=== PATIENT | male | born 1975 | race Caucasian/White ===

== ENCOUNTER 2024-06-22 21:02 | Emergency (ER) | payer SELFPAY ==
[2024-06-22 21:08] VITALS: BP 158/78; PULSE 96; TEMP 97.9
--- NOTE | 2024-06-22 21:43 | ED ---
General Adult HPI - General Chief complaint: Dental/Oral Stated complaint: Dental Pain Time Seen by Provider: 06/22/24 21:15 Source: patient, RN notes reviewed, old records reviewed Mode of arrival: ambulatory Limitations: no limitations - History of Present Illness Initial comments: Patient is a 49-year-old male with no significant past medical history presents emergency department over concern for dental infection. Had tooth extraction approximately 7 days ago. Just finished his Augmentin antibiotic yesterday. Since yesterday has been having some right upper jawline swelling into the right cheek. Is concerned that he needs more antibiotics. Denies any difficulty swallowing. Denies any difficulty breathing. Denies any tongue swelling or posterior throat swelling. Denies any neck swelling. Has no other acute complaints at this time. Is tolerating oral secretions. Presents for evaluation. - Related Data Previous Rx's Medication Instructions Recorded Clindamycin [Cleocin] 450 mg PO TID 7 Days #63 cap 06/22/24 predniSONE [Deltasone] 20 mg PO DAILY 5 Days #5 tab 06/22/24 Allergies Allergy/AdvReac Type Severity Reaction Status Date / Time vancomycin AdvReac Rash/Hives Verified 06/22/24 21:08 Review of Systems ROS Statement: Those systems with pertinent positive or pertinent negative responses have been documented in the HPI. Review of Systems: CONST: Denies fever EYES: Denies blurry vision ENT: Endorses tooth pain, cheek swelling C/V: Denies Chest pain RESP: Denies shortness of breath GI: Denies abdominal pain : Denies dysuria SKIN: Denies rash. MSK: Denies joint pain. NEURO: Denies headache ROS Other: All systems not noted in ROS Statement are negative. Past Medical History Past Medical History: No Reported History History of Any Multi-Drug Resistant Organisms: None Reported Past Surgical History: Orthopedic Surgery Past Psychological History: No Psychological Hx Reported Smoking Status: Current every day smoker Past Alcohol Use History: None Reported Past Drug Use History: None Reported General Exam - General Exam Comments Initial Comments: General: Appears in no acute distress. HEAD: Normal with no signs of head trauma. EYES: EOMI. PERRLA. Pupils are 2 mm and equal bilaterally. ENT: Hearing grossly intact. Mild edema over the right cheek. No significant tenderness to palpation over the maxillary sinus bilaterally. No obvious abscess appreciated intraorally. Surgical site where the tooth was extracted appears within acceptable limits. Some edema in the gumline. Uvula is midline. No posterior oropharyngeal swelling. No tongue edema. No floor the mouth swelling. No stridor auscultated. Tolerating oral secretions. No evidence of Brandon's angina. RESPIRATORY: No respiratory distress. C/V: Regular rate and rhythm. ABD: Abdomen is nondistended. EXT: No obvious deformity. SKIN: No rashes or lesions observed on exposed skin. NEURO: Alert and oriented. Limitations: no limitations Course Vital Signs 06/22/24 21:04 Temperature 97.9 F Pulse Rate 96 Respiratory 18 Rate Blood Pressure 158/78 O2 Sat by Pulse 98 Oximetry Medical Decision Making - Medical Decision Making Was pt. sent in by a medical professional or institution (, PA, CONSTRUCTION EQUIPMENT OPERATOR, urgent care, hospital, or senior living...) When possible be specific @ -No Did you speak to anyone other than the patient for history (EMS, parent, family, police, friend...)? What history was obtained from this source @ -No Did you review nursing and triage notes (agree or disagree)? Why? @ -I reviewed and agree with nursing and triage notes Were old charts reviewed (outside hosp., previous admission, EMS record, old EKG, old radiological studies, urgent care reports/EKG's, senior living records)? Report findings @ -No old charts were reviewed Differential Diagnosis (chest pain, altered mental status, abdominal pain women, abdominal pain men, vaginal bleeding, weakness, fever, dyspnea, syncope, headache, dizziness, GI bleed, back pain, seizure, CVA, palpatations, mental health, musculoskeletal)? @ -Brandon's angina, dental pain, tooth infection. This list is not all inclusive. EKG interpreted by me (3pts min.). @ -None done X-rays interpreted by me (1pt min.). @ -None done CT interpreted by me (1pt min.). @ -None done U/S interpreted by me (1pt. min.). @ -None done What testing was considered but not performed or refused? (CT, X-rays, U/S, labs)? Why? @ -Discussed the option of imaging of the face however patient and I both agree this is not necessary at this time and we will defer. Patient can return if symptoms worsen. What meds were considered but not given or refused? Why? @ -None Did you discuss the management of the patient with other professionals (rossi vivas i.e. , PA, CONSTRUCTION EQUIPMENT OPERATOR, lab, RT, psych nurse, social services specialist, truck driver rubbish collector, teacher, environmental conservation officer, case fitter)? Give summary @ -No Was smoking cessation discussed for >3mins.? @ -No Was critical care preformed (if so, how long)? @ -No Were there social determinants of health that impacted care today? How? (Homelessness, low income, unemployed, alcoholism, drug addiction, transportation, low edu. Level, literacy, decrease access to med. care, fpc, rehab)? @ -No Was there de-escalation of care discussed even if they declined (Discuss DNR or withdrawal of care, Hospice)? DNR status @ -No What co-morbidities impacted this encounter? (DM, HTN, Smoking, COPD, CAD, Cancer, CVA, ARF, Chemo, Hep., AIDS, mental health diagnosis, sleep apnea, morbid obesity)? @ -None Was patient admitted / discharged? Hospital course, mention meds given and route, prescriptions, significant lab abnormalities, going to OR and other pertinent info. @ -Patient presents with what appears to be tooth infection. Some swelling over the right cheek as well. We discussed the option of obtaining CT imaging however he has swelling to started today, is not severe, is tolerating oral secretions, has no difficulty breathing, minimal tenderness, and vitals are within acceptable limits. Patient has no evidence of Brandon's angina on exam. We both agreed to defer at this time. Patient can always return if symptoms worsen. Patient was in agreement this plan. Patient will be given a dose of IM steroids as well as a prescription for steroids as well as antibiotics. He will be restarted on antibiotics today, clindamycin. Instructions to follow-up with his oral surgeon. He was in agreement this plan. Vital signs are within acceptable limits. I will provide the patient with a prescription for prednisone, clindamycin. I instructed the patient to follow up with their PCP in the next 1-3 days. I explained that the patient should return to the emergency department if they experience any worsening symptoms. Strict return precautions were discussed with the patient. The patient expressed understanding of these instructions. I answered all questions that the patient had. The patient was discharged home in good condition with their prescriptions and follow up information. Undiagnosed new problem with uncertain prognosis? @ -No Drug Therapy requiring intensive monitoring for toxicity (Heparin, Nitro, Insulin, Cardizem)? @ -No Were any procedures done? @ -No Diagnosis/symptom? @ -Dental infection, toothache Acute, or Chronic, or Acute on Chronic? @ -Acute Uncomplicated (without systemic symptoms) or Complicated (systemic symptoms)? @ -Uncomplicated Side effects of treatment? @ -No Exacerbation, Progression, or Severe Exacerbation? @ -No Poses a threat to life or bodily function? How? (Chest pain, USA, [place], pneumonia, PE, COPD, DKA, ARF, appy, cholecystitis, CVA, Diverticulitis, Homicidal, Suicidal, threat to staff... and all critical care pts) @ -Unlikely at this time Disposition Clinical Impression: Dental infection, Toothache Disposition: HOME SELF-CARE Condition: Good Instructions (If sedation given, give patient instructions): Toothache (ED) Prescriptions: Clindamycin [Cleocin] 450 mg PO TID 7 Days #63 cap predniSONE [Deltasone] 20 mg PO DAILY 5 Days #5 tab Is patient prescribed a controlled substance at d/c from ED?: No Referrals: None,Stated [Primary Care Provider] - 1-2 days Time of Disposition: 21:43
[2024-06-22] MEDS: DEXAMETHASONE SOD PHOSPHATE 4 MG/ML 1 ML VIAL IM STA (22:08)
[2024-06-22] MEDS: CLINDAMYCIN 150 MG CAP PO STA (22:08)
[2024-06-22 22:11] VITALS: RESP 16
== END 2024-06-22 22:12 | disposition home or self-care (01) ==
LOC: EC 21:02
CPT/HCPCS: 96372; 99283

== ENCOUNTER 2024-06-26 13:37 | Inpatient (IN) | payer BC ==
[2024-06-26 15:34] LABS: Basophils # (A) 0.1 k/uL (0-0.2); Basophils % (A) 0 %; Eosinophils # (A) 0.1 k/uL (0-0.7); Eosinophils % (A) 1 %; HCT 46.6 % (39.0-53.0); HGB 15.8 gm/dL (13.0-17.5); Lymphocytes # (A) 1.8 k/uL (1.0-4.8); Lymphocytes % (A) 14 %; MCH 30.3 pg (25.0-35.0); MCHC 33.9 g/dL (31.0-37.0); MCV 89.4 fL (80.0-100.0); Mean Platelet Volume 6.6; Monocytes # (A) 0.7 k/uL (0-1.0); Monocytes % (A) 5 %; Neutrophils # (A) 10.4 k/uL (1.3-7.7); Neutrophils % (A) 79 %; Platelet Count 391 k/uL (150-450); RBC 5.21 m/uL (4.30-5.90); RDW 12.5 % (11.5-15.5); WBC 13.2 k/uL (3.8-10.6)
[2024-06-26 15:41] LABS: ALT 40 U/L (4-49); AST 21 U/L (17-59); African American GFR (CKD) >90 (>60 ml/min/1.73 sqM); Albumin 4.4 g/dL (3.5-5.0); Alkaline Phosphatase 85 U/L (38-126); Anion Gap 4 mmol/L; Blood Urea Nitrogen 14 mg/dL (9-20); Calcium 10.9 mg/dL (8.4-10.2); Carbon Dioxide 32 mmol/L (22-30); Chloride 101 mmol/L (98-107); Glucose 99 mg/dL (74-99); Non-African American GFR(CKD) >90 (>60 ml/min/1.73 sqM); Potassium 4.3 mmol/L (3.5-5.1); Sodium 137 mmol/L (137-145); Total Bilirubin 0.8 mg/dL (0.2-1.3); Total Protein 7.9 g/dL (6.3-8.2)
--- NOTE | 2024-06-26 16:09 | CT ---
EXAMINATION TYPE: CT facial bones w con DATE OF EXAM: 06/26/2024 3:41 PM COMPARISON: None. CLINICAL INDICATION: Male, 49 years old with history of dental abscess, worsening; PHH, worsening den linda abscess TECHNIQUE: Multiple unenhanced axial CT images were obtained of the facial bones soft tissue and bone windows. Coronal, axial and sagittal reformatted images were also provided in soft tissue and bone windows and submitted for interpretation. Contrast used:100 ml mL of Isovue 370 with IV Contrast, (none if empty) Oral contrast used: (none if empty) CT DLP: 401.4 mGycm, Automated exposure control for dose reduction was used. FINDINGS: Fat stranding inflammation changes around the right mandible with near complete opacification of the right maxillary sinus. There is severe edema in around the right maxilla and mandible. Early abscess formation suggested series 202 image 33 measuring 11 x 6 mm. Prominent right level 2 lymph node likely reactive measuring 10 mm in short axis. There is osseous er osion near the right superior alveolar ridge of the maxilla near the first molar IMPRESSION: 1. Osseous erosion near the expected location of the right upper first molar with moderate right max illary sinus paranasal sinus disease. Severe edema and subcutaneous fat stranding changes with small organizing fluid collection/abscess measuring 11 x 6 mm. [facility], , 06/26/2024 4:07 PM
[2024-06-26] MEDS: HYDROmorphone 1 MG/ML 1 ML SYRINGE IVP STA (16:48)
[2024-06-26] MEDS: AMPICILLIN-SULBACTAM 3 GM in SODIUM CHLORIDE 0.9% 100 ML IVPB STA (16:54)
[2024-06-26] MEDS: DEXAMETHASONE SOD PHOSPHATE 10 MG/ML 1 ML VIAL IVP STA (19:01)
[2024-06-26] MEDS: .ACETAMINOPHEN IV (PEDS) 1,000 MG in EMPTY BAG 1 BAG IVPB STA (19:06)
--- NOTE | 2024-06-26 19:52 | ED ---
General Adult HPI - General Chief complaint: Dental/Oral Stated complaint: Oral Pain Source: patient Mode of arrival: ambulatory Limitations: no limitations - History of Present Illness Initial comments: Stefano gentleman, everyday cigarette smoker presents ER today for worsening facial pain and swelling. Patient had a right upper tooth removed 13 days ago, he was prescribed antibiotics at the time of the extraction. Despite being compliant with his antibiotics he had worsening pain and some mild swelling, he was reevaluated here at the hospital and had a new prescription for myosin. Patient has been taking the clindamycin since Thursday but has persistently worsening pain and swelling. Today the swelling in his face is so profound that his eye is swollen and he is having trouble opening his eye this prompted him to come to the ER for evaluation. - Related Data Previous Rx's Medication Instructions Recorded Clindamycin [Cleocin] 450 mg PO TID 7 Days #63 cap 06/22/24 predniSONE [Deltasone] 20 mg PO DAILY 5 Days #5 tab 06/22/24 Allergies Allergy/AdvReac Type Severity Reaction Status Date / Time vancomycin Allergy Rash/Hives Verified 06/26/24 18:46 Review of Systems ROS Statement: Those systems with pertinent positive or pertinent negative responses have been documented in the HPI. ROS Other: All systems not noted in ROS Statement are negative. Past Medical History Past Medical History: No Reported History History of Any Multi-Drug Resistant Organisms: None Reported Past Surgical History: Orthopedic Surgery Past Psychological History: No Psychological Hx Reported Smoking Status: Current every day smoker Past Alcohol Use History: None Reported Past Drug Use History: None Reported General Exam - General Exam Comments Initial Comments: Physical Exam GENERAL: Is in distress due to pain, he has significant edema of the right side of his face with angioedema around the eye HENT: Swelling of the cheek and right side of the face noted Dentition recent extractions no palpable areas of fluctuance or areas that can be drained EYES: PERRL, EOMI PULMONARY: Unlabored respirations. CARDIOVASCULAR: RRR Warm and well perfused extremities ABDOMEN: Non-distended SKIN: No rashes or bruising : Deferred NEUROLOGIC: Alert and oriented Normal speech Normal gait MUSCULOSKELETAL: Moving all extremities with no apparent injury PSYCHIATRIC: No SI/HI Limitations: no limitations Course Vital Signs 06/26/24 06/26/24 06/26/24 14:16 15:52 16:47 Temperature 99.0 F 99.4 F Pulse Rate 94 82 82 Respiratory 18 16 18 Rate Blood Pressure 134/85 143/94 137/82 O2 Sat by Pulse 100 98 98 Oximetry 06/26/24 18:17 Temperature 100.0 F H Pulse Rate 76 Respiratory 18 Rate Blood Pressure 127/84 O2 Sat by Pulse 97 Oximetry Medical Decision Making - Medical Decision Making Was pt. sent in by a medical professional or institution (, SATISH, TUNA PURSE SEINER, urgent care, hospital, or longterm...) When possible be specific @ -No Did you speak to anyone other than the patient for history (EMS, parent, family, police, friend...)? What history was obtained from this source @ -No Did you review nursing and triage notes (agree or disagree)? Why? @ -I reviewed and agree with nursing and triage notes Were old charts reviewed (outside hosp., previous admission, EMS record, old EKG, old radiological studies, urgent care reports/EKG's, longterm records)? Report findings @ -Visits were reviewed Differential Diagnosis (chest pain, altered mental status, abdominal pain women, abdominal pain men, vaginal bleeding, weakness, fever, dyspnea, syncope, headache, dizziness, GI bleed, back pain, seizure, CVA, palpatations, mental health)? @ -Includes cellulitis, abscess EKG interpreted by me (3pts min.). @ -As above X-rays interpreted by me (1pt min.). @ -None done CT interpreted by me (1pt min.). @ -CT with no free air in the tissue, significant edema noted U/S interpreted by me (1pt. min.). @ -None done What testing was considered but not performed or refused? (CT, X-rays, U/S, labs)? Why? @ -None What meds were considered but not given or refused? Why? @ -None Did you discuss the management of the patient with other professionals (professionals i.e. , SATISH, TUNA PURSE SEINER, lab, RT, psych nurse, social work lecturer, serology technician, teacher, correctional security officer, renal case manager)? Give summary @ -No Was smoking cessation discussed for >3mins.? @ -Yes Was critical care preformed (if so, how long)? @ -No Were there social determinants of health that impacted care today? How? (Home lessness, low income, unemployed, alcoholism, drug addiction, transportation, low edu. Level, literacy, decrease access to med. care, snf, rehab)? @ -No Was there de-escalation of care discussed even if they declined (Discuss DNR or withdrawal of care, Hospice)? DNR status @ -No What co-morbidities impacted this encounter? (DM, HTN, Smoking, COPD, CAD, Cancer, CVA, ARF, Chemo, Hep., AIDS, mental health diagnosis, sleep apnea, morbid obesity)? @ -Smoking Was patient admitted / discharged? Hospital course, mention meds given and route, prescriptions, significant lab abnormalities, going to OR and other pertinent info. @ -Patient was seen and evaluated labs and CT of the face were obtained CT suggestive of a very small abscess however nothing that I can drain. Patient was treated with Unasyn. Given the degree of the patient's swelling and his failure of outpatient therapy with 2 courses of oral antibiotics we will plan to admit him for IV antibiotics. Dr. Dacosta accepts the admission Undiagnosed new problem with uncertain prognosis? @ -No Drug Therapy requiring intensive monitoring for toxicity (Heparin, Nitro, Insulin, Cardizem)? @ -No Were any procedures done? @ -No Diagnosis/symptom? @ -Dental abscess Acute, or Chronic, or Acute on Chronic? @ -Acute Uncomplicated (without systemic symptoms) or Complicated (systemic symptoms)? @ -Default Side effects of treatment? @ -No Exacerbation, Progression, or Severe Exacerbation? @ -No Poses a threat to life or bodily function? How? (Chest pain, USA, [place], pneumonia, PE, COPD, DKA, ARF, appy, cholecystitis, CVA, Diverticulitis, Homicidal, Suicidal, threat to staff... and all critical care pts) @ -Unlikely however can advance to Brandon's angina which can be life- threatening - Lab Data Result diagrams: 06/26/24 15:21 06/26/24 15:21 Lab Results 06/26/24 06/26/24 Range/Units 15:21 15:21 WBC 13.2 H (3.8-10.6) k/uL RBC 5.21 (4.30-5.90) m/uL Hgb 15.8 (13.0-17.5) gm/dL Hct 46.6 (39.0-53.0) % MCV 89.4 (80.0-100.0) fL MCH 30.3 (25.0-35.0) pg MCHC 33.9 (31.0-37.0) g/dL RDW 12.5 (11.5-15.5) % Plt Count 391 (150-450) k/uL MPV 6.6 Neutrophils % 79 % Lymphocytes % 14 % Monocytes % 5 % Eosinophils % 1 % Basophils % 0 % Neutrophils # 10.4 H (1.3-7.7) k/uL Lymphocytes # 1.8 (1.0-4.8) k/uL Monocytes # 0.7 (0-1.0) k/uL Eosinophils # 0.1 (0-0.7) k/uL Basophils # 0.1 (0-0.2) k/uL Sodium 137 (137-145) mmol/L Potassium 4.3 (3.5-5.1) mmol/L Chloride 101 (98-107) mmol/L Carbon Dioxide 32 H (22-30) mmol/L Anion Gap 4 mmol/L BUN 14 (9-20) mg/dL Creatinine 0.90 (0.66-1.25) mg/dL Est GFR (CKD-EPI)AfAm >90 (>60 ml/min/1.73 sqM) Est GFR (CKD-EPI)NonAf >90 (>60 ml/min/1.73 sqM) Glucose 99 (74-99) mg/dL Calcium 10.9 H (8.4-10.2) mg/dL Total Bilirubin 0.8 (0.2-1.3) mg/dL AST 21 (17-59) U/L ALT 40 (4-49) U/L Alkaline Phosphatase 85 (38-126) U/L Total Protein 7.9 (6.3-8.2) g/dL Albumin 4.4 (3.5-5.0) g/dL Disposition Clinical Impression: Dental infection Disposition: ADMITTED IP TO THIS [facility] Referrals: None,Stated [Primary Care Provider] - 1-2 days
[2024-06-26] MEDS ORDERED: NALOXONE 0.4 MG/ML 1 ML VIAL IV PRN (21:15)
--- NOTE | 2024-06-26 23:15 | P.HPIM ---
History of Present Illness H&P Date: 06/26/24 Chief Complaint: "The swelling over right face." Stefano is a 49 y o male patient no chronic medical problems who presented with swelling and pressure on the right side of his face. He was seen in the ER on Thursday due to this issue, which started swelling up after the extraction of a right upper first molar due to an abscess approximately 2 weeks ago. After the initial swelling, it improved on but started worsening again on Thursday evening, prompting him to cut a trip short to return for care. Stefano reports associated pain, chills, and a fever noted during his visit. He also indicates slight difficulty swallowing in the right submandibular region. He denies shortness of breath, chest pain, and gastrointestinal issues, denies drooling. His pain seems to increase during swallowing. He received a course of antibiotics following his tooth extraction, finishing a ten-day regimen and stating that while he initially improved, the symptoms have returned. He has a history of dental issues but reports no acute dental pain currently. Stefano is currently living independently and smokes cigarettes. He denies alcohol and illicit drug use. Status post extraction of right upper first molar due to abscess 2 weeks ago. History of MRSA, knee surgery, and rotator cuff surgery, dates not specified. Vancomycin - allergic reaction, described as red man syndrome, with skin peeling and renal issues reported. Review of systems HEENT - swelling on the right side of the face, tenderness in the parotid region, slight discomfort while swallowing. Denies nasal congestion or sore throat. Respiratory - denies shortness of breath or cough. Gastrointestinal - denies nausea, vomiting, or diarrhea. Genitourinary - denies any urinary issues. Musculoskeletal - some pain reported in neck and location of surgical site but no severe limitations; no history of major pain in lower limbs. Neurological - denies dizziness or headaches. on exam Constitutional: No acute distress, conversant, pleasant Eyes: Anicteric sclerae, moist conjunctiva, Pupils equal round reactive to light ENMT: NC/AT Significant soft tissue swelling over the right side of the face with tenderness palpation of the right frontal and even worse over the right maxillary sinus, l oral movements restricted due to pain Neck: Supple, no masses, or JVD No carotid bruits No thyromegaly Lungs: Clear to auscultation Clear to percussion Normal respiratory effort, no accessory muscle use Cardiovascular: Heart regular in rate and rhythm, No murmurs, gallops, or rubs No peripheral edema Abdominal: Soft Nontender, no guarding, rebound or rigidity Abdomen moving with respiration Normoactive bowel sounds Extremities: No digital cyanosis No clubbing Pedal pulses intact and symmetrical Radial pulses intact and symmetrical No calf tenderness Psychiatric: Alert and oriented to person, place and time Appropriate affect fair judgement Neuro Muscles Strength 5/5 in all 4 extremities Sensation to light touch grossly present throughout Cranial nerves II-XII grossly intact Lymphatics: no palpable cervical or supraclavicular lymph nodes Assessment and plan 49-year-old male with no chronic problems presented with worsening right facial swelling status post dental extraction due to an abscess 2 weeks ago for which she finished a course of antibiotics as an outpatient I discussed case with ED doctor and accepted the admission for significant facial swelling and recurrent right dental abscess with anticipated length of stay more than 2 midnights Sepsis secondary to right dental abscess Subclinical fever temperature 100 overall Leukocytosis white count 13.2 tachycardia heart rate 94 Follow-up cultures Unasyn 3 g IV piggyback every 6 hours Tylenol 650 mg p.o. as needed for fever every 6 hours Pain control with Toradol 50 mg IV push every 6 hours as needed Pain control with Dilaudid 0.5 mg IV push every 6 hours as needed Monitor for any worsening of swelling leading to difficulty swallowing or breathing Monitor vital signs CT of the face showed right upper first molarerosion with right maxillary sinus disease along with severe edema and subcutaneous fat stranding possible abscess 11 x 6 mm IV fluid hydration with normal saline 130 cc/h Rest of blood work unremarkable hemoglobin 15.8 unremarkable Renal function unremarkable sodium 137 potassium 4.3 BUN 14 creatinine 0.9 Liver enzymes unremarkable AST 21 ALT 40 Full code DVT prophylaxis heparin 5000 units subcu 3 times a day Past Medical History Past Medical History: No Reported History History of Any Multi-Drug Resistant Organisms: None Reported Past Surgical History: Orthopedic Surgery Past Psychological History: No Psychological Hx Reported Smoking Status: Current every day smoker Past Alcohol Use History: None Reported Past Drug Use History: None Reported Medications and Allergies Home Medications Medication Instructions Recorded Confirmed Type Clindamycin [Cleocin] 450 mg PO TID 7 Days #63 cap 06/22/24 06/26/24 Rx predniSONE [Deltasone] 20 mg PO DAILY 5 Days #5 tab 06/22/24 06/26/24 Rx Allergies Allergy/AdvReac Type Severity Reaction Status Date / Time vancomycin Allergy Rash/Hives Verified 06/26/24 18:46 Physical Exam Vitals: Vital Signs Temp Pulse Resp BP Pulse Ox 06/26/24 18:17 100.0 F H 76 18 127/84 97 06/26/24 16:47 82 18 137/82 98 06/26/24 15:52 99.4 F 82 16 143/94 98 06/26/24 14:16 99.0 F 94 18 134/85 100 Intake and Output 06/26/24 06/26/24 06/27/24 14:59 22:59 06:59 Other: Weight 90.718 kg Results CBC & Chem 7: 06/26/24 15:21 06/26/24 15:21 Labs: Abnormal Lab Results - Last 24 Hours (Table) 06/26/24 06/26/24 Range/Units 15:21 15:21 WBC 13.2 H (3.8-10.6) k/uL Neutrophils # 10.4 H (1.3-7.7) k/uL Carbon Dioxide 32 H (22-30) mmol/L Calcium 10.9 H (8.4-10.2) mg/dL
[2024-06-26] MEDS: AMPICILLIN-SULBACTAM 3 GM in SODIUM CHLORIDE 0.9% 100 ML IVPB SCH (23:50)
[2024-06-26] MEDS: SODIUM CHLORIDE 0.9% 1,000 ML IV SCH (23:50)
[2024-06-27] MEDS: HYDROmorphone 0.5 MG/0.5 ML SYRINGE IVP PRN (06:12)
[2024-06-27] MEDS: ACETAMINOPHEN TAB 325 MG TAB PO PRN (10:17)
[2024-06-27 10:49] LABS: Basophils % (A) 0 %; Eosinophils # (A) 0.1 k/uL (0-0.7); Eosinophils % (A) 1 %; HCT 43.7 % (39.0-53.0); HGB 14.3 gm/dL (13.0-17.5); Lymphocytes # (A) 1.1 k/uL (1.0-4.8); Lymphocytes % (A) 8 %; MCH 29.4 pg (25.0-35.0); MCHC 32.8 g/dL (31.0-37.0); MCV 89.6 fL (80.0-100.0); Mean Platelet Volume 6.9; Monocytes # (A) 0.7 k/uL (0-1.0); Monocytes % (A) 5 %; Neutrophils # (A) 10.7 k/uL (1.3-7.7); Neutrophils % (A) 85 %; Platelet Count 400 k/uL (150-450); RBC 4.88 m/uL (4.30-5.90); RDW 12.3 % (11.5-15.5); WBC 12.6 k/uL (3.8-10.6)
[2024-06-27 11:04] LABS: African American GFR (CKD) >90 (>60 ml/min/1.73 sqM); Anion Gap 5 mmol/L; Blood Urea Nitrogen 16 mg/dL (9-20); Calcium 10.8 mg/dL (8.4-10.2); Carbon Dioxide 30 mmol/L (22-30); Chloride 100 mmol/L (98-107); Glucose 117 mg/dL (74-99); Non-African American GFR(CKD) >90 (>60 ml/min/1.73 sqM); Potassium 4.8 mmol/L (3.5-5.1); Sodium 135 mmol/L (137-145)
[2024-06-27] MEDS: KETOROLAC 15 MG/ML 1 ML VIAL IVP PRN (11:52)
[2024-06-27] MEDS: NICOTINE 21MG/24HR PATCH TRANSDERM SCH (13:17)
--- NOTE | 2024-06-27 13:45 | P.PN ---
Subjective Progress Note Date: 06/27/24 Subjective: Patient seen and examined at the bedside. No acute events overnight. Patient states that he is feeling a lot better and pain is much more controlled. All Systems reviewed and pertinent positives and negatives noted in HPI, all other symptoms are negative Objective: Vital signs reviewed. General: non toxic, no distress, appears at stated age, normal weight Derm: no unusual rashes/lesions, warm HEENT: Right facial swelling. Tenderness upon palpation of the right cheek and area around angle of mandible Cardiovascular: S1S2 reg, no murmur, positive dorsalis pedis pulse bilateral, no edema Lungs: CTA bilateral, no rhonchi, no rales, no accessory muscle use Abdominal: soft, nontender to palpation, no guarding Ext: muscle strength 5 out of 5 in all 4 extremities grossly, no gross muscle atrophy, no contractures, Neuro: CN II-XI grossly intact, no gross focal neuro deficits Psych: Alert, oriented, appropriate affect Data reviewed today: Labs: WBC 12.6, hemoglobin 14.3, hematocrit 43.7, MCV 89.6, platelet count 400, sodium 135, potassium 4.8, bicarb 30, chloride 100, BUN 16, creatinine 0.69, calcium 12.8, Images: No new imaging. Assessment and Plan: 49-year-old male with no past medical history presented to the ER with worsening pain and swelling of the right face status post dental extraction due to an abscess 2 weeks ago. Patient finished 10-day course of antibiotic as an outpatient. #Sepsis secondary to right dental abscess Continue with Unasyn 3 g IVPB every 6 hours Continue with IV normal saline 130 cc/h Acetaminophen 650 mg p.o. every 6 hours as needed, Dilaudid 0.5 mg IV every 3 hours as needed and Toradol 30 mg IVP every 6 hours as needed for pain Consult oral and maxillofacial surgeon for periodontal abscess drainage pharmacological prophylaxis VTE is not indicated based on Kristel score Monitor CBC Monitor vital signs #Hypercalcemia Continue with IV fluids as above Continue monitor calcium level Check PTH #Hyponatremia Sodium 135 Continue monitor sodium level #Metabolic alkalosis Bicarb 30 Continue monitor BMP F: IV fluids at 130 cc/h E: Replete as needed N: Regular diet A: ambulatory DVT ppx: Not indicated Code Status: Full Anticipated discharge place: Pending clinical course Anticipated discharge date: Pending clinical course I have seen and evaluated the patient today. Discussed with the resident and agree with the residents finding and plan as documented in the resident's note. Changes highlighted in blue font. Objective - Vital Signs Vital signs: Vital Signs Temp 98.2 F 06/27/24 07:50 Pulse 75 06/27/24 07:50 Resp 16 06/27/24 07:50 BP 123/72 06/27/24 07:50 Pulse Ox 95 06/27/24 07:50 FiO2 Intake & Output 06/26/24 06/27/24 06/27/24 18:59 06:59 18:59 Weight 90.718 kg 90.718 kg - Labs CBC & Chem 7: 06/27/24 10:17 06/27/24 10:17 Labs: Abnormal Lab Results - Last 24 Hours (Table) 06/26/24 06/26/24 06/27/24 Range/Units 15:21 15:21 10:17 WBC 13.2 H 12.6 H (3.8-10.6) k/uL Neutrophils # 10.4 H 10.7 H (1.3-7.7) k/uL Sodium (137-145) mmol/L Carbon Dioxide 32 H (22-30) mmol/L Glucose (74-99) mg/dL Calcium 10.9 H (8.4-10.2) mg/dL 06/27/24 Range/Units 10:17 WBC (3.8-10.6) k/uL Neutrophils # (1.3-7.7) k/uL Sodium 135 L (137-145) mmol/L Carbon Dioxide (22-30) mmol/L Glucose 117 H (74-99) mg/dL Calcium 10.8 H (8.4-10.2) mg/dL
[2024-06-28 06:24] LABS: Basophils % (A) 0 %; Eosinophils # (A) 0.1 k/uL (0-0.7); Eosinophils % (A) 1 %; HCT 40.4 % (39.0-53.0); HGB 13.2 gm/dL (13.0-17.5); Lymphocytes # (A) 2.1 k/uL (1.0-4.8); Lymphocytes % (A) 22 %; MCH 29.4 pg (25.0-35.0); MCHC 32.6 g/dL (31.0-37.0); MCV 90.1 fL (80.0-100.0); Mean Platelet Volume 6.6; Monocytes # (A) 0.6 k/uL (0-1.0); Monocytes % (A) 7 %; Neutrophils # (A) 6.8 k/uL (1.3-7.7); Neutrophils % (A) 70 %; Platelet Count 350 k/uL (150-450); RBC 4.49 m/uL (4.30-5.90); RDW 12.5 % (11.5-15.5); WBC 9.8 k/uL (3.8-10.6)
[2024-06-28 06:48] LABS: African American GFR (CKD) >90 (>60 ml/min/1.73 sqM); Anion Gap -1 mmol/L; Blood Urea Nitrogen 20 mg/dL (9-20); Carbon Dioxide 29 mmol/L (22-30); Chloride 108 mmol/L (98-107); Glucose 99 mg/dL (74-99); Non-African American GFR(CKD) >90 (>60 ml/min/1.73 sqM); Potassium 4.2 mmol/L (3.5-5.1); Sodium 136 mmol/L (137-145)
--- NOTE | 2024-06-28 11:56 | P.PN ---
Subjective Progress Note Date: 06/28/24 Subjective: Patient seen and examined at the bedside. No acute events overnight. Patient states that he is feeling better and pain is controlled. All Systems reviewed and pertinent positives and negatives noted in HPI, all other symptoms are negative Objective: Vital signs reviewed. General: non toxic, no distress, appears at stated age, normal weight Derm: no unusual rashes/lesions, warm HEENT: Right facial swelling. Tenderness upon palpation of the right cheek and area around angle of mandible Cardiovascular: S1S2 reg, no murmur, positive dorsalis pedis pulse bilateral, no edema Lungs: CTA bilateral, no rhonchi, no rales, no accessory muscle use Abdominal: soft, nontender to palpation, no guarding Ext: muscle strength 5 out of 5 in all 4 extremities grossly, no gross muscle atrophy, no contractures, Neuro: CN II-XI grossly intact, no gross focal neuro deficits Psych: Alert, oriented, appropriate affect Data reviewed today: Labs: WBC 9.8, hemoglobin 13.2, platelet count 350, sodium 136, potassium 4.2, chloride 108, bicarb 29, creatinine 0.86, BUN 20, 25-hydroxy vitamin D is 9.9, PTH 76 Images: No new imaging. Assessment and Plan: 49-year-old male with no past medical history presented to the ER with worsening pain and swelling of the right face status post dental extraction due to an abscess 2 weeks ago. Patient finished 10-day course of antibiotic as an outpati ent. #Sepsis secondary to right dental abscess Continue with Unasyn 3 g IVPB every 6 hours Continue with IV normal saline 100 cc/h Acetaminophen 650 mg p.o. every 6 hours as needed, Dilaudid 0.5 mg IV every 3 hours as needed and Toradol 30 mg IVP every 6 hours as needed for pain OMFS and DDS consulted pharmacological prophylaxis VTE is not indicated based on Kristel score Monitor CBC Monitor vital signs ID also consulted #Hypercalcemia, resolved #Vitamin D deficiency #Elevated PTH, likely reactive Continue with IV fluids as above Continue monitor calcium level Low 25-hydroxy vitamin D level 9.9; recommend vitamin D supplement and outpatient follow-up with PCP Elevated PTH 76, likely reactive #Hyponatremia, improving Sodium 136 Continue monitor sodium level #Metabolic alkalosis Bicarb 30 Continue monitor BMP F: IV fluids at 100 cc/h E: Replete as needed N: Regular diet A: ambulatory DVT ppx: Not indicated Code Status: Full Anticipated discharge place: Pending clinical course Anticipated discharge date: Pending clinical course I have seen and evaluated the patient today. Discussed with the resident and agree with the residents finding and plan as documented in the resident's note. Changes highlighted in blue font. Patient has failed observation, will be switched to inpatient status. Objective - Vital Signs Vital signs: Vital Signs Temp 98.5 F 06/28/24 09:09 Pulse 75 06/28/24 09:09 Resp 18 06/28/24 09:09 BP 126/74 06/28/24 09:09 Pulse Ox 100 06/28/24 09:09 FiO2 Intake & Output 06/27/24 06/28/24 06/28/24 18:59 06:59 18:59 Intake Total 1000 Balance 1000 Weight 90.718 kg Intake: Oral 1000 Other: # Voids 3 2 - Labs CBC & Chem 7: 06/28/24 06:02 06/28/24 06:02 Labs: Abnormal Lab Results - Last 24 Hours (Table) 06/27/24 06/27/24 06/28/24 Range/Units 18:24 18:24 06:02 Sodium 136 L (137-145) mmol/L Chloride 108 H (98-107) mmol/L Vitamin D 25-Hydroxy 9.9 L (30.0-100.0) ng/mL PTH Intact 76.0 H (14.0-72.0) pg/mL
[2024-06-28] MEDS: HYDROcodone/APAP 5-325MG 1 EACH TAB PO PRN (13:06)
--- NOTE | 2024-06-28 13:59 | P.GSCN ---
History of Present Illness Consult date: 06/27/24 Reason for Consult: Postextraction dental abscess upper right Requesting physician: Nohelia Pena History of present illness: Patient presented to emergency room after failed outpatient therapy with clindamycin. He reported a history of dental extraction while swollen approximately 2 weeks ago. He was on Augmentin orally prior to the extraction and after the extraction he did not feel this was working and he presented to the emergency room on the for received clindamycin. Clindamycin did not help with his swelling and he was started on IV Unasyn. Review of Systems See HPI the patient feels the IV antibiotics are improving his condition slightly but he is still swollen and has difficulty opening his mouth Past Medical History Past Medical History: No Reported History History of Any Multi-Drug Resistant Organisms: None Reported Past Surgical History: Orthopedic Surgery Past Psychological History: No Psychological Hx Reported Smoking Status: Current every day smoker Past Alcohol Use History: None Reported Past Drug Use History: None Reported Medications and Allergies Home Medications Medication Instructions Recorded Confirmed Type Clindamycin [Cleocin] 450 mg PO TID 7 Days #63 cap 06/22/24 06/26/24 Rx predniSONE [Deltasone] 20 mg PO DAILY 5 Days #5 tab 06/22/24 06/26/24 Rx Allergies Allergy/AdvReac Type Severity Reaction Status Date / Time vancomycin Allergy Rash/Hives Verified 06/26/24 18:46 Surgical - Exam Vital Signs Temp Pulse Resp BP Pulse Ox 99.0 F 94 18 134/85 100 06/26/24 14:16 06/26/24 14:16 06/26/24 14:16 06/26/24 14:16 06/26/24 14:16 Patient resting in bed watching TV. Alert and oriented x 3 has a 1 cm swelling adjacent to his right cheekbone. Appears to be associated with a zygomatic buttress of his maxilla. Also could be part of the parotid gland. No redness or swelling around the eye today. Patient has limited opening approximately 20 mm. Tooth extraction site #3 appears to be in healing well with no oral antral communication. Unable to express saliva from the right parotid duct. But the body of the parotid gland does not appear swollen. Results - Labs 06/28/24 06:02 06/28/24 06:02 Abnormal Lab Results - Last 24 Hours (Table) 06/27/24 06/27/2406/28/24 Range/Units 18:24 18:24 06:02 Sodium 136 L (137-145) mmol/L Chloride 108 H (98-107) mmol/L Vitamin D 25-Hydroxy 9.9 L (30.0-100.0) ng/mL PTH Intact 76.0 H (14.0-72.0) pg/mL Diabetes panel 06/28/24 Range/Units 06:02 Sodium 136 L (137-145) mmol/L Potassium 4.2 (3.5-5.1) mmol/L Chloride 108 H (98-107) mmol/L Carbon Dioxide 29 (22-30) mmol/L BUN 20 (9-20) mg/dL Creatinine 0.86 (0.66-1.25) mg/dL Glucose 99 (74-99) mg/dL Calcium 10.0 (8.4-10.2) mg/dL Calcium panel 06/28/24 Range/Units 06:02 Calcium 10.0 (8.4-10.2) mg/dL Pituitary panel 06/28/24 Range/Units 06:02 Sodium 136 L (137-145) mmol/L Potassium 4.2 (3.5-5.1) mmol/L Chloride 108 H (98-107) mmol/L Carbon Dioxide 29 (22-30) mmol/L BUN 20 (9-20) mg/dL Creatinine 0.86 (0.66-1.25) mg/dL Glucose 99 (74-99) mg/dL Calcium 10.0 (8.4-10.2) mg/dL Adrenal panel 06/28/24 Range/Units 06:02 Sodium 136 L (137-145) mmol/L Potassium 4.2 (3.5-5.1) mmol/L Chloride 108 H (98-107) mmol/L Carbon Dioxide 29 (22-30) mmol/L BUN 20 (9-20) mg/dL Creatinine 0.86 (0.66-1.25) mg/dL Glucose 99 (74-99) mg/dL Calcium 10.0 (8.4-10.2) mg/dL - Imaging Comments: CT scan of the facial bones appears to have a small fluid collection adjacent to the maxilla in the area of the stigmatic buttress. This is consistent with post dental extraction. Due to scatter radiation unable to see if there is any root tips left in the sinus. Also a well-circumscribed area associated with the anterior belly of the temporalis muscle. Possibly related to fat or the parotid gland. This was not noted in the radiate allergy report. Assessment and Plan Assessment: Facial swelling appears to be improving on current IV antibiotic therapy. Plan: Does not appear to have anything to drain at this time but recommend continue IV antibiotics with a heating pad in an effort to consolidate any infection. If that appears fluctuant or coming to ahead then a drain may be indicated. Due to the extraction socket appearing within normal limits and some nonfluctuant swelling adjacent to the maxilla this could either be a normal postoperative course or a slowly resolving abscess. Of note on the CAT scan there was a well-circumscribed radiolucent area associated with the right temporalis muscle could represent pathology within the parotid gland. Recommend repeat the facial CAT scan with panoramic reconstruction special attention to the right temporalis region as well as evaluate for root tips within the sinus secondary to the extraction Time with Patient: Greater than 30
--- NOTE | 2024-06-28 15:02 | P.GSCN ---
History of Present Illness Consult date: 06/28/24 (pt) Reason for Consult: Pt had an extraction at [facility], and after that presented with a swelling, was giiven antibiotics (Augmentin) and swelling disappeared. It came back few days after, according to the patient, and he came to the ER. He was placed on Clindamycin and steroids, and then Unasyn IV Abx. However, the swelling is very present, extending to below the eye, and patient is very sore. According to Dr العلي, who I spoke to, he saw him yesterday and he said the swelling is better today compared to yesterday. Recommended taking a Panorex to check for retained root, or the cause of the swelling that seems to be worse than the normal swelling after an extraction. Once the panorex is done, and the retained root is eliminated, I recommend Patient sees the Oral surgeon, and Dr العلي recommends patients sees an infectious disease specialist as the swelling is not localized enough to drain it. I will follow up with documentation after the panorex is ready. Past Medical History Past Medical History: No Reported History History of Any Multi-Drug Resistant Organisms: None Reported Past Surgical History: Orthopedic Surgery Past Psychological History: No Psychological Hx Reported Smoking Status: Current every day smoker Past Alcohol Use History: None Reported Past Drug Use History: None Reported Medications and Allergies Home Medications Medication Instructions Recorded Confirmed Type Clindamycin [Cleocin] 450 mg PO TID 7 Days #63 cap 06/22/24 06/26/24 Rx predniSONE [Deltasone] 20 mg PO DAILY 5 Days #5 tab 06/22/24 06/26/24 Rx Allergies Allergy/AdvReac Type Severity Reaction Status Date / Time vancomycin Allergy Rash/Hives Verified 06/26/24 18:46 Surgical - Exam Vital Signs Temp Pulse Resp BP Pulse Ox 99.0 F 94 18 134/85 100 06/26/24 14:16 06/26/24 14:16 06/26/24 14:16 06/26/24 14:16 06/26/24 14:16 Results - Labs 06/28/24 06:02 06/28/24 06:02 Abnormal Lab Results - Last 24 Hours (Table) 06/27/24 06/27/24 06/28/24 Range/Units 18:24 18:24 06:02 Sodium 136 L (137-145) mmol/L Chloride 108 H (98-107) mmol/L Vitamin D 25-Hydroxy 9.9 L (30.0-100.0) ng/mL PTH Intact 76.0 H (14.0-72.0) pg/mL Diabetes panel 06/28/24 Range/Units 06:02 Sodium 136 L (137-145) mmol/L Potassium 4.2 (3.5-5.1) mmol/L Chloride 108 H (98-107) mmol/L Carbon Dioxide 29 (22-30) mmol/L BUN 20 (9-20) mg/dL Creatinine 0.86 (0.66-1.25) mg/dL Glucose 99 (74-99) mg/dL Calcium 10.0 (8.4-10.2) mg/dL Calcium panel 06/28/24 Range/Units 06:02 Calcium 10.0 (8.4-10.2) mg/dL Pituitary panel 06/28/24 Range/Units 06:02 Sodium 136 L (137-145) mmol/L Potassium 4.2 (3.5-5.1) mmol/L Chloride 108 H (98-107) mmol/L Carbon Dioxide 29 (22-30) mmol/L BUN 20 (9-20) mg/dL Creatinine 0.86 (0.66-1.25) mg/dL Glucose 99 (74-99) mg/dL Calcium 10.0 (8.4-10.2) mg/dL Adrenal panel 06/28/24 Range/Units 06:02 Sodium 136 L (137-145) mmol/L Potassium 4.2 (3.5-5.1) mmol/L Chloride 108 H (98-107) mmol/L Carbon Dioxide 29 (22-30) mmol/L BUN 20 (9-20) mg/dL Creatinine 0.86 (0.66-1.25) mg/dL Glucose 99 (74-99) mg/dL Calcium 10.0 (8.4-10.2) mg/dL
--- NOTE | 2024-06-28 16:26 | CT ---
EXAMINATION TYPE: CT Panorex DATE OF EXAM: 06/28/2024 COMPARISON: None HISTORY: dental abscess CT DLP: 401.4 mGycm Automated exposure control for dose reduction was used. Contrast: None Technique: CT Panorex FINDINGS: There is a right maxillary sinusitis. Right posterior maxillary molar is absent mandible as visualize d appears intact. Temporomandibular joint extending out of the [id number]. IMPRESSION: 1. RIGHT MAXILLARY SINUSITIS. [facility], Workstation: [facility], 06/28/2024 4:23 PM
--- NOTE | 2024-06-28 22:50 | P.CONS ---
History of Present Illness - Reason for Consult Consult date: 06/28/24 Severe dental infection Requesting physician: Chaka Murillo - Chief Complaint Right upper jaw and facial swelling and pain x days - History of Present Illness Patient is a 49-year-old male with a past medical history significant for smoking patient recently did have extraction of the right upper jaw teeth because of infection about 2 weeks ago patient mention he was given a week course of oral Augmentin and seemed to have improvement in his symptoms few days after completion of his antibiotic the patient on having increasing swelling pain to the right side of the face and jaw area for the patient was evaluated at [facility] on 06/22/2024 he received a dose of steroids and was discharged on oral clindamycin patient mention he did have some improvement in the swelling initially however subsequent noticed to have increasing swelling to the right side of the face and the jaw area as well as becoming more painful patient describing the pain to be throbbing moderate to severe intensity without any radiation denies having any difficulty swallowing or difficulty breathing and no high-grade fever or the patient presented back to the hospital on 06/26/2024 he did have a low-grade fever 100 F patient was not tachycardic hypotensive or hypoxic he did have white count of 13.2 with a left shift creatinine 0.90 electrolytes are normal liver enzymes are normal patient did have a CT bony erosion near the expected location of the right upper first molar with moderate right maxillary sinus paraspinal disease severe edema and subcutaneous fat stranding and there was concern for a small abscess 11 and 6 mm patient has been treated with Unasyn infectious disease was consulted this morning regarding dental abscess Review of Systems Positive point and negatives has been mentioned in the HPI, complete review of systems was performed and all other systems are negative Past Medical History Past Medical History: No Reported History History of Any Multi-Drug Resistant Organisms: None Reported Past Surgical History: Orthopedic Surgery Past Psychological History: No Psychological Hx Reported Smoking Status: Current every day smoker Past Alcohol Use History: None Reported Past Drug Use History: None Reported Medications and Allergies Home Medications Medication Instructions Recorded Confirmed Type Clindamycin [Cleocin] 450 mg PO TID 7 Days #63 cap 06/22/24 06/26/24 Rx predniSONE [Deltasone] 20 mg PO DAILY 5 Days #5 tab 06/22/24 06/26/24 Rx Allergies Allergy/AdvReac Type Severity Reaction Status Date / Time vancomycin Allergy Rash/Hives Verified 06/26/24 18:46 Physical Exam Vitals: Vital Signs Temp Pulse Resp BP BP Pulse Ox 06/28/24 09:09 98.5 F 75 18 126/74 100 06/28/24 01:26 65 17 110/70 94 L 06/27/24 20:00 98.6 F 79 20 111/74 93 L 06/27/24 15:00 98.6 F 77 16 126/84 96 Intake and Output 06/27/24 06/28/24 06/28/24 22:59 06:59 14:59 Intake Total 500 500 Balance 500 500 Intake: Oral 500 500 Other: # Voids 2 2 GENERAL DESCRIPTION: Middle-aged male lying in bed, no distress. No tachypnea or accessory muscle of respiration use. HEENT: Shows Pallor , no scleral icterus. Oral mucous membrane is dry. Patient did have a swelling right upper and right area no drainage NECK: Trachea central, no thyromegaly. LUNGS: Unlabored breathing. Clear to auscultation anteriorly. No wheeze or crackle. HEART: S1, S2, regular rate and rhythm. No loud murmur ABDOMEN: Soft, no tenderness , guarding or rigidity, no organomegaly EXTREMITIES: No edema of feet. SKIN: No rash, no masses palpable. NEUROLOGICAL: The patient is awake, alert, oriented x3, mood and affect normal. Results CBC & Chem 7: 06/28/24 06:02 06/29/24 05:49 Labs: Abnormal Lab Results - Last 24 Hours (Table) 06/27/24 06/27/24 06/28/24 Range/Units 18:24 18:24 06:02 Sodium 136 L (137-145) mmol/L Chloride 108 H (98-107) mmol/L Vitamin D 25-Hydroxy 9.9 L (30.0-100.0) ng/mL PTH Intact 76.0 H (14.0-72.0) pg/mL Assessment and Plan (1) Dental abscess Current Visit: Yes Status: Acute Code(s): K04.7 - PERIAPICAL ABSCESS WITHOUT SINUS SNOMED Code(s): 659645872 (2) Failure of outpatient treatment Current Visit: Yes Status: Acute Code(s): Z78.9 - OTHER SPECIFIED HEALTH STATUS SNOMED Code(s): 681930924 (3) Leukocytosis Current Visit: Yes Status: Acute Code(s): D72.829 - ELEVATED WHITE BLOOD CELL COUNT, UNSPECIFIED SNOMED Code(s): 224890929 (4) Allergy to vancomycin Current Visit: Yes Status: Acute Code(s): Z88.1 - ALLERGY STATUS TO OTHER ANTIBIOTIC AGENTS SNOMED Code(s): 876844498 Plan: 1patient presented to the hospital with increasing pain and swelling to the r ight upper jaw in this patient who recently did have a right upper molar tooth extraction about 2 weeks ago with initial improvement on the oral Augmentin subsequent recurrence of this symptom and now worsening on clindamycin and did have a small abscess on the initial CT we will need to cover for the polymicrobial norma associated with such infection 2patient benefit from surgical drainage of that abscess and fluid should be sent for the culture 3keeping in mind the patient white count is trending down we will continue the patient on Unasyn however would likely benefit from a short course of IV antibiotic therapy on discharge and the renal case manager to look into the outpatient IV antibiotic coverage Multiple question Answered We will follow on clinical condition and cultures to further adjust medication if needed Thank you for this consultation we will follow the patient along with you Dictation was produced using [employer] dictation software. please excuse any grammatical, word or spelling errors. Time with Patient: Greater than 30
[2024-06-29 08:34] LABS: BUN/Creat Ratio 15.75 Ratio (12.00-20.00); Blood Urea Nitrogen 12.6 mg/dL (9.0-27.0); Calcium 9.8 mg/dL (8.7-10.3); Carbon Dioxide 24.3 mmol/L (21.6-31.8); Chloride 105 mmol/L (96-109); Glucose 99 mg/dL (70-110); Potassium 4.3 mmol/L (3.5-5.5); Sodium 137 mmol/L (135-145)
--- NOTE | 2024-06-29 12:21 | P.PN ---
Subjective Progress Note Date: 06/29/24 Principal diagnosis: Reason for follow-up is dental infection/abscess Patient is a 49-year-old male with a past medical history significant for smoking patient recently did have extraction of the right upper jaw teeth because of infection about 2 weeks ago and subsequently has been dealing with infection to that area some improvement with the Augmentin but show course was short did have worsening on the clindamycin admitted to hospital with worsening CT of the face which shows bony erosion near the expected location and there was small fluid collection patient also have a repeat CT right posterior maxillary molar is absent mandible is intact. On today's evaluation that is 06/29/2024,the patient denies any fever or any chills, patient is breathing comfortably on room air, the patient denies chest pain shortness of breath and no significant cough, patient denies abdominal pain, no nausea vomiting or diarrhea., The patient pain swelling to the right maxillary is slightly decreased in intensity Patient white count normalized to 9.8 hours yesterday creatinine 0.8 Objective - Vital Signs Vital signs: Vital Signs Temp 97.7 F 06/29/24 07:50 Pulse 71 06/29/24 07:50 Resp 16 06/29/24 07:50 BP 109/66 06/29/24 07:50 Pulse Ox 95 06/29/24 07:50 FiO2 Intake & Output 06/28/24 06/29/24 06/29/24 18:59 06:59 18:59 Intake Total 120 Balance 120 Intake: Oral 120 Other: Voiding Method Toilet Toilet # Voids 4 2 - Exam GENERAL DESCRIPTION: Middle-age male lying in bed in no distress HEENT: Did have right maxillary swelling no redness RESPIRATORY SYSTEM: Unlabored breathing , decreased breath sounds at bases HEART: S1 S2 regular rate and rhythm , ABDOMEN: Soft , no tenderness EXTREMITIES: No edema feet - Labs CBC & Chem 7: 06/28/24 06:02 06/29/24 05:49 Assessment and Plan (1) Dental abscess Current Visit: Yes Status: Acute Code(s): K04.7 - PERIAPICAL ABSCESS WITHOUT SINUS SNOMED Code(s): 016878615 (2) Failure of outpatient treatment Current Visit: Yes Status: Acute Code(s): Z78.9 - OTHER SPECIFIED HEALTH STATUS SNOMED Code(s): 413493555 (3) Leukocytosis Current Visit: Yes Status: Acute Code(s): D72.829 - ELEVATED WHITE BLOOD CELL COUNT, UNSPECIFIED SNOMED Code(s): 472139888 (4) Allergy to vancomycin Current Visit: Yes Status: Acute Code(s): Z88.1 - ALLERGY STATUS TO OTHER ANTIBIOTIC AGENTS SNOMED Code(s): 132284949 Plan: 1patient presented to the hospital with increasing pain and swelling to the right upper jaw in this patient who recently did have a right upper molar tooth extraction about 2 weeks ago with initial improvement on the oral Augmentin subsequent recurrence of this symptom and now worsening on clindamycin and did have a small abscess on the initial CT we will need to cover for the polymicrobial norma associated with such infection 2patient benefit from surgical drainage of that abscess and fluid should be sent for the culture by the nursing staff Dr. Humphrey planning on doing the procedure this afternoon 3patient to continue with Unasyn will need a course of IV antibiotics on discharge this has been discussed with the case assembler and the patient Dictation was produced using [employer] dictation software. please excuse any grammatical, word or spelling errors. Time with Patient: Less than 30
[2024-06-29] MEDS: HYDROmorphone 0.5 MG/0.5 ML SYRINGE IVP PRN (14:34)
[2024-06-29] MEDS: IV FLUID CONTINUATION 1,000 ML IV ONE (15:04)
[2024-06-29] MEDS: DEXAMETHASONE SOD PHOSPHATE 4 MG/ML 1 ML VIAL IVP STA (15:20)
[2024-06-29] MEDS: ONDANSETRON 4 MG/2 ML VIAL IVP STA (15:21)
--- NOTE | 2024-06-29 15:43 | P.PN ---
Subjective Progress Note Date: 06/29/24 Subjective: Patient seen and examined at the bedside. No acute events overnight. Patient states that he is feeling better and pain is controlled. All Systems reviewed and pertinent positives and negatives noted in HPI, all other symptoms are negative Objective: Vital signs reviewed. General: non toxic, no distress, appears at stated age, normal weight Derm: no unusual rashes/lesions, warm HEENT: Right facial swelling. Tenderness upon palpation of the right cheek and area around angle of mandible Cardiovascular: S1S2 reg, no murmur, positive dorsalis pedis pulse bilateral, no edema Lungs: CTA bilateral, no rhonchi, no rales, no accessory muscle use Abdominal: soft, nontender to palpation, no guarding Ext: muscle strength 5 out of 5 in all 4 extremities grossly, no gross muscle atrophy, no contractures, Neuro: CN II-XI grossly intact, no gross focal neuro deficits Psych: Alert, oriented, appropriate affect Data reviewed today: Labs: Sodium 137, potassium 4.2, chloride 105, bicarb 24.3, BUN 12.6, creatinine 0.8 Images: No new imaging. Assessment and Plan: 49-year-old male with no past medical history presented to the ER with worsening pain and swelling of the right face status post dental extraction due to an abscess 2 weeks ago. Patient finished 10-day course of antibiotic as an outpatient. #Sepsis secondary to right dental abscess Continue with Unasyn 3 g IVPB every 6 hours Continue with IV normal saline 100 cc/h Acetaminophen 650 mg p.o. every 6 hours as needed, Dilaudid 0.5 mg IV every 3 hours as needed and Toradol 30 mg IVP every 6 hours as needed for pain OMFS and DDS consulted: Surgical drainage this afternoon by Dr. العلي pharmacological prophylaxis VTE is not indicated based on Kristel score Monitor CBC Monitor vital signs ID also consulted; patient to be discharged on IV antibiotics after surgical drainage. #Hypercalcemia, resolved #Vitamin D deficiency #Elevated PTH, likely reactive Continue with IV fluids as above Continue monitor calcium level Low 25-hydroxy vitamin D level 9.9; recommend vitamin D supplement and outpatient follow-up with PCP Elevated PTH 76, likely reactive #Hyponatremia, resolved Sodium 137 #Metabolic alkalosis, resolved Bicarb 24.3 F: IV fluids at 100 cc/h E: Replete as needed N: N.p.o., resume regular diet in the evening A: ambulatory DVT ppx: Not indicated, encourage ambulation Code Status: Full Anticipated discharge place: Pending clinical course Anticipated discharge date: Pending clinical course I have seen and evaluated the patient today. Discussed with the resident and agree with the residents finding and plan as documented in the resident's note. Changes highlighted in blue font. Objective - Vital Signs Vital signs: Vital Signs Temp 99.3 F 06/29/24 14:55 Pulse 63 06/29/24 14:55 Resp 18 06/29/24 14:55 BP 154/84 06/29/24 14:55 Pulse Ox 100 06/29/24 14:55 FiO2 Intake & Output 06/28/24 06/29/24 06/29/24 18:59 06:59 18:59 Intake Total 120 Balance 120 Intake: Oral 120 Other: Voiding Method Toilet Toilet # Voids 4 2 1 - Labs CBC & Chem 7: 06/28/24 06:02 06/29/24 05:49
[2024-06-29] MEDS ORDERED: SUCCINYLCHOLINE CHLORIDE 200 MG/10 ML VIAL IV ONE (15:47)
[2024-06-29] MEDS ORDERED: PROPOFOL 10 MG/ML 20 ML VIAL IV ONE (15:47)
[2024-06-29] MEDS ORDERED: KETOROLAC 15 MG/ML 1 ML VIAL ONE (15:47)
[2024-06-29] MEDS ORDERED: MIDAZOLAM 2 MG/2 ML VIAL ONE (15:47)
[2024-06-29] MEDS ORDERED: fentaNYL (PF) 50 MCG/ML 2 ML AMP ONE (15:47)
[2024-06-29] MEDS: LIDOCAINE 2%-EPI 1:100,000 20 ML VIAL SQ ONE (16:06)
[2024-06-29] MEDS: LACTATED RINGERS 1,000 ML IV ONE (16:24)
[2024-06-29] MEDS: MEPERIDINE 50 MG/ML SYRINGE IVP STA (16:48)
--- NOTE | 2024-06-29 16:53 | P.OP ---
Date of Procedure: 06/29/24 Preoperative Diagnosis: Abscess right cheek Postoperative Diagnosis: Same Procedure(s) Performed: Incision and drainage. Placement of drain. Anaerobic aerobic cultures. Anesthesia: RUSSELLA Surgeon: Moses العلي Estimated Blood Loss (ml): 5 IV fluids (ml): 900 Urine output (ml): 0 Pathology: other (Aerobic anaerobic culture and sensitivity) Condition: stable Disposition: PACU Indications for Procedure: Patient had tooth extraction at an outside facility that had preoperative swelling. Patient reported his tooth did hurt at that time and felt like a filling was loose. The patient had the tooth pulled did not respond to the extraction and antibiotics infected swelling got worse. Patient then presented to the emergency room requesting antibiotics they started him on clindamycin. 5 days later it was not improving and he came in on the . Patient had IV antibiotics Unasyn and did not improve. CAT scan reread by radiology and noted to have an abscess adjacent to the zygomatic arch. Decision made to take patient to the operating room explore the area under anesthesia to effort to find a collection of fluid. Operative Findings: None Description of Procedure: Patient seen in the preoperative holding area consent reviewed with patient including but not limited to bleeding pain infection worsening and swelling. Possible need for additional procedures. Also discussed was the proximity of the parotid duct in the area. Possible damage to the structure as well as nerves in the parotid gland. Patient understood these risks and agreed to proceed with the procedure. Planned procedure was exploration under anesthesia incision and drainage into any fluid pockets with placement of a drain and culture and sensitivity. Patient taken to the operating room prepped and draped in usual fashion for clean contaminated oral surgery. Patient was intubated orally with an oral ray per the anesthesia record. Bite-block and throat pack were placed. 5 cc of 2% lidocaine was administered infiltrative LEEP. 18-gauge needle was used in an effort to locate fluid collection. Fluid was noted in the posterior maxillary space. This was tucked up underneath the zygomatic arch. 6 to 7 cc of yellow pus was drained from this area and this fluid was sampled with aerobic and anaerobic culture tubes. A incision was made into the space approximately 1 cm through the mucosa taking care to avoid the parotid duct. The parotid duct was cannulated with a lacrimal probe and seen to be patent even though no saliva was being expressed at this time. Also no pus came from this area. After cannulation the blunt dissection carried up along the bone to it easily identified space of pus. It was rinsed copious irrigation was used in effort to get all the remaining pus out of this pocket. Pushing on the cheek it was very firm a little more pus was coming out just under the mucosa adjacent to the incision. Another pocket was located out in the cheek tissue near the zygomatic arch. This was also bluntly dissected with a hemostat and irrigated copiously. 1/4 inch Luis E drain was secured in place approximately 2 cm into the space under the mucosa and secured with a 2-0 silk suture. No pus was noted to come out of this area so the drain was left in place and the throat pack and bite block were removed. The patient was then awakened extubated taken to the postoperative holding area awaiting transfer to the floor. Plan to keep him on the same antibiotic awaiting culture results Plan - Discharge Summary Discharge Rx Participant: Yes New Discharge Prescriptions: No Action Clindamycin [Cleocin] 450 mg PO TID 7 Days #63 cap predniSONE [Deltasone] 20 mg PO DAILY 5 Days #5 tab Discharge Medication List Clindamycin [Cleocin] 450 mg PO TID 7 Days #63 cap 06/22/24 [Rx] predniSONE [Deltasone] 20 mg PO DAILY 5 Days #5 tab 06/22/24 [Rx] Follow up Appointment(s)/Referral(s): [facility] [NON-STAFF] - 1 Week
[2024-06-30 08:46] LABS: Basophils # (A) 0.01 X 10*3/uL (0.00-0.10); Basophils % (A) 0.1 %; Eosinophils # (A) 0.01 X 10*3/uL (0.04-0.35); Eosinophils % (A) 0.1 %; Lymphocytes # (A) 1.08 X 10*3/uL (0.90-5.00); Lymphocytes % (A) 12.1 %; MCH 30.2 pg (27.0-32.0); MCHC 33.3 g/dL (32.0-37.0); MCV 90.5 FL (80.0-97.0); Mean Platelet Volume 9.4 FL (9.5-12.2); Monocytes % (A) 7.9 %; NRBC Per 100 WBC 0 X 10*3/uL (0.00-0.01); Neutrophils # (A) 7.05 X 10*3/uL (1.80-7.70); Neutrophils % (A) 79.4 %; Platelet Count 370 X 10*3/uL (140-440); RBC 4.31 X 10*6/uL (4.40-5.60); RDW 12.3 % (11.5-14.5); WBC 8.89 X 10*3/uL (4.50-10.00)
--- NOTE | 2024-06-30 14:32 | P.PN ---
Subjective Progress Note Date: 06/30/24 Principal diagnosis: Reason for follow-up is dental infection/abscess Patient is a 49-year-old male with a past medical history significant for smoking patient recently did have extraction of the right upper jaw teeth because of infection about 2 weeks ago and subsequently has been dealing with infection to that area some improvement with the Augmentin but show course was short did have worsening on the clindamycin admitted to hospital with worsening CT of the face which shows bony erosion near the expected location and there was small fluid collection patient also have a repeat CT right posterior maxillary molar is absent mandible is intact. Patient is status post right cheek abscess drainage by oral surgery on 06/29/2024. On today's evaluation that is 06/30/2024,the patient remains to be afebrile, patient is on room air not requiring supplemental oxygen and denies any shortness of breath no chest pain or cough.Patient denies having any nausea or vomiting, no abdominal pain and no diarrhea patient pain and swelling to the right facial area has decreased in intensity. Patient white count is 8.89, creatinine 0.8 cultures currently pending Objective - Vital Signs Vital signs: Vital Signs Temp 98.0 F 06/30/24 07:00 Pulse 60 06/30/24 07:00 Resp 16 06/30/24 07:00 BP 118/72 06/30/24 07:00 Pulse Ox 99 06/30/24 07:00 FiO2 Intake & Output 06/29/24 06/30/24 06/30/24 18:59 06:59 18:59 Intake Total 1270 Output Total 5 Balance 1265 Intake: IV 1150 Oral 120 Output: Estimated Blood Loss 5 Other: Voiding Method Toilet Toilet # Voids 1 2 - Exam GENERAL DESCRIPTION: Middle-age male lying in bed in no distress HEENT: Did have right maxillary swelling no redness RESPIRATORY SYSTEM: Unlabored breathing , decreased breath sounds at bases HEART: S1 S2 regular rate and rhythm , ABDOMEN: Soft , no tenderness EXTREMITIES: No edema feet - Labs CBC & Chem 7: 06/30/24 03:19 06/29/24 05:49 Labs: Abnormal Lab Results - Last 24 Hours (Table) 06/30/24 Range/Units 03:19 RBC 4.31 L (4.40-5.60) X 10*6/uL Hct 39.0 L (39.6-50.0) % MPV 9.4 L (9.5-12.2) FL Eosinophils # 0.01 L (0.04-0.35) X 10*3/uL Assessment and Plan (1) Dental abscess Current Visit: Yes Status: Acute Code(s): K04.7 - PERIAPICAL ABSCESS WITHOUT SINUS SNOMED Code(s): 811621806 (2) Failure of outpatient treatment Current Visit: Yes Status: Acute Code(s): Z78.9 - OTHER SPECIFIED HEALTH STATUS SNOMED Code(s): 554274301 (3) Leukocytosis Current Visit: Yes Status: Acute Code(s): D72.829 - ELEVATED WHITE BLOOD CELL COUNT, UNSPECIFIED SNOMED Code(s): 654190004 (4) Allergy to vancomycin Current Visit: Yes Status: Acute Code(s): Z88.1 - ALLERGY STATUS TO OTHER ANTIBIOTIC AGENTS SNOMED Code(s): 081588032 Plan: 1patient presented to the hospital with increasing pain and swelling to the right upper jaw in this patient who recently did have a right upper molar tooth extraction about 2 weeks ago with initial improvement on the oral Augmentin subsequent recurrence of this symptom and now worsening on clindamycin and did have a small abscess on the initial CT we will need to cover for the polymicrobial norma associated with such infection 2patient is status post surgical drainage of that abscess and fluid should be sent for the culture by oral surgery results will be followed 3patient to continue with Unasyn, outpatient antibiotic has been discussed with the patient who wants to wait and will let us know tomorrow about his decision Dictation was produced using [employer] dictation software. please excuse any grammatical, word or spelling errors. Time with Patient: Less than 30
--- NOTE | 2024-06-30 16:11 | P.PN ---
Subjective Progress Note Date: 06/30/24 Subjective: Patient seen and examined at the bedside. No acute events overnight. Patient states that he is feeling better with pain and swelling resolving after abscess drainage. All Systems reviewed and pertinent positives and negatives noted in HPI, all other symptoms are negative Objective: Vital signs reviewed. General: non toxic, no distress, appears at stated age, normal weight Derm: no unusual rashes/lesions, warm HEENT: Right facial swelling. Tenderness upon palpation of the right cheek and area around angle of mandible Cardiovascular: S1S2 reg, no murmur, positive dorsalis pedis pulse bilateral, no edema Lungs: CTA bilateral, no rhonchi, no rales, no accessory muscle use Abdominal: soft, nontender to palpation, no guarding Ext: muscle strength 5 out of 5 in all 4 extremities grossly, no gross muscle atrophy, no contractures, Neuro: CN II-XI grossly intact, no gross focal neuro deficits Psych: Alert, oriented, appropriate affect Data reviewed today: Labs: WBC 8.89, hemoglobin 13.0, hematocrit 39.0, platelet count 370 Images: No new imaging. Assessment and Plan: 49-year-old male with no past medical history presented to the ER with worsening pain and swelling of the right face. Patient admitted for moderate to severe dental abscess. #Sepsis secondary to right dental abscess s/p abscess drainage Continue with Unasyn 3 g IVPB every 6 hours Continue with IV normal saline 30 cc/h Acetaminophen 650 mg p.o. every 6 hours as needed, Dilaudid 0.5 mg IV every 3 hours as needed and Toradol 30 mg IVP every 6 hours as needed for pain pharmacological prophylaxis VTE is not indicated based on Kristel score Monitor CBC Monitor vital signs ID note reviewed, possible discharge tomorrow on oral versus IV antibiotics #Hypercalcemia, resolved #Vitamin D deficiency #Elevated PTH, likely reactive Continue with IV fluids as above Continue monitor calcium level Low 25-hydroxy vitamin D level 9.9; recommend vitamin D supplement and outpatient follow-up with PCP Elevated PTH 76, likely reactive #Hyponatremia, resolved Sodium 137 #Metabolic alkalosis, resolved Bicarb 24.3 F: IV normal saline 30 cc/h E: Replete as needed N: Regular diet A: ambulatory DVT ppx: Not indicated, encourage ambulation Code Status: Full Anticipated discharge place: Pending clinical course Anticipated discharge date: Pending clinical course I have seen and evaluated the patient today. Discussed with the resident and agree with the residents finding and plan as documented in the resident's note. Changes highlighted in blue font. Objective - Vital Signs Vital signs: Vital Signs Temp 98 F 06/30/24 14:20 Pulse 66 06/30/24 14:20 Resp 16 06/30/24 07:00 BP 123/74 06/30/24 14:20 Pulse Ox 97 06/30/24 14:20 FiO2 Intake & Output 06/29/24 06/30/24 06/30/24 18:59 06:59 18:59 Intake Total 1270 Output Total 5 Balance 1265 Intake: IV 1150 Oral 120 Output: Estimated Blood Loss 5 Other: Voiding Method Toilet Toilet Toilet # Voids 1 2 - Labs CBC & Chem 7: 06/30/24 03:19 06/29/24 05:49 Labs: Abnormal Lab Results - Last 24 Hours (Table) 06/30/24 Range/Units 03:19 RBC 4.31 L (4.40-5.60) X 10*6/uL Hct 39.0 L (39.6-50.0) % MPV 9.4 L (9.5-12.2) FL Eosinophils # 0.01 L (0.04-0.35) X 10*3/uL
--- NOTE | 2024-06-30 17:51 | P.PN ---
Progress Note - Text Progress Note Date: 06/30/24 Patient 1 day status post incision and drainage of the right maxillary space adjacent to the psychometric buttress. Patient sitting up in bed watching TV appears comfortable states his pain is controlled. Patient reports some taste of discharge throughout the day. Patient feels the swelling is gone down. Patient feels less pain Objectively the patient swelling appears diminished from yesterday. Redness under the eye is less. Patient has an decision inside of his mouth in the maxillary vestibule adjacent to his extraction site of tooth #3. There is a [place] drain which is sutured in place and stable. Assessment postoperatively the patient has improved slightly. Drain continues to output Recommend adding heat to his face free 2 hours in an effort to encourage more antibiotic and blood flow in the area. Continue IV antibiotics await cultures. Gram stain had no organisms seen multiple neutrophils
--- NOTE | 2024-07-01 13:07 | P.PN ---
Subjective Progress Note Date: 07/01/24 Principal diagnosis: Reason for follow-up is dental infection/abscess Patient is a 49-year-old male with a past medical history significant for smoking patient recently did have extraction of the right upper jaw teeth because of infection about 2 weeks ago and subsequently has been dealing with infection to that area some improvement with the Augmentin but show course was short did have worsening on the clindamycin admitted to hospital with worsening CT of the face which shows bony erosion near the expected location and there was small fluid collection patient also have a repeat CT right posterior maxillary molar is absent mandible is intact. Patient is status post right cheek abscess drainage by oral surgery on 06/29/2024. On today's evaluation that is 07/01/2024, the patient continues to be afebrile, the patient is on room air and breathing comfortably, the Pt denies having any chest pain or cough, the patient denies having any abdominal pain no vomiting or any diarrhea patient pain and swelling to the right maxillary area has decreased in intensity. No new lab has been obtained today cultures are currently pending Objective - Vital Signs Vital signs: Vital Signs Temp 98.1 F 07/01/24 07:08 Pulse 61 07/01/24 10:16 Resp 17 07/01/24 10:16 BP 105/63 07/01/24 07:08 Pulse Ox 96 07/01/24 07:08 FiO2 Intake & Output 06/30/24 07/01/24 07/01/24 18:59 06:59 18:59 Intake Total 240 300 Balance 240 300 Intake: Oral 240 300 Other: Voiding Method Toilet Toilet Toilet # Voids 6 3 3 # Bowel Movements 0 0 - Exam GENERAL DESCRIPTION: Middle-age male lying in bed in no distress HEENT: Did have right maxillary swelling no redness RESPIRATORY SYSTEM: Unlabored breathing , decreased breath sounds at bases HEART: S1 S2 regular rate and rhythm , ABDOMEN: Soft , no tenderness EXTREMITIES: No edema feet - Labs CBC & Chem 7: 06/30/24 03:19 06/29/24 05:49 Labs: Microbiology - Last 24 Hours (Table) 06/29/24 16:35 Gram Stain - Preliminary Mouth Wound Culture - Preliminary 06/29/24 16:30 Gram Stain - Preliminary Mouth Wound Culture - Preliminary Assessment and Plan (1) Dental abscess Current Visit: Yes Status: Acute Code(s): K04.7 - PERIAPICAL ABSCESS WITHOUT SINUS SNOMED Code(s): 707876854 (2) Failure of outpatient treatment Current Visit: Yes Status: Acute Code(s): Z78.9 - OTHER SPECIFIED HEALTH STATUS SNOMED Code(s): 738616881 (3) Leukocytosis Current Visit: Yes Status: Acute Code(s): D72.829 - ELEVATED WHITE BLOOD CELL COUNT, UNSPECIFIED SNOMED Code(s): 318074481 (4) Allergy to vancomycin Current Visit: Yes Status: Acute Code(s): Z88.1 - ALLERGY STATUS TO OTHER ANTIBIOTIC AGENTS SNOMED Code(s): 052809148 Plan: 1patient presented to the hospital with increasing pain and swelling to the right upper jaw in this patient who recently did have a right upper molar tooth extraction about 2 weeks ago with initial improvement on the oral Augmentin subsequent recurrence of this symptom and now worsening on clindamycin and did have a small abscess on the initial CT we will need to cover for the polymicrobial norma associated with such infection 2patient is status post surgical drainage of that abscess and fluid should be sent for the culture by oral surgery results are currently pending 3patient to continue with Unasyn, patient would benefit from a 2-week course of Rocephin 2 g daily and oral Flagyl on discharge rather than oral antibiotic this has been discussed with the patient as well as with the admitting team Dictation was produced using [employer] dictation software. please excuse any grammatical, word or spelling errors. Time with Patient: Less than 30
--- NOTE | 2024-07-01 15:58 | P.PN ---
Subjective Progress Note Date: 07/01/24 Subjective: Patient seen and examined at the bedside. No acute events overnight. Patient states that he is feeling better with pain and swelling resolving after abscess drainage. All Systems reviewed and pertinent positives and negatives noted in HPI, all other symptoms are negative Objective: Vital signs reviewed. General: non toxic, no distress, appears at stated age, normal weight Derm: no unusual rashes/lesions, warm HEENT: Right facial swelling. Tenderness upon palpation of the right cheek and area around angle of mandible Cardiovascular: S1S2 reg, no murmur, positive dorsalis pedis pulse bilateral, no edema Lungs: CTA bilateral, no rhonchi, no rales, no accessory muscle use Abdominal: soft, nontender to palpation, no guarding Ext: muscle strength 5 out of 5 in all 4 extremities grossly, no gross muscle atrophy, no contractures, Neuro: CN II-XI grossly intact, no gross focal neuro deficits Psych: Alert, oriented, appropriate affect Data reviewed today: Labs: No new labs Images: No new imaging. Assessment and Plan: 49-year-old male with no past medical history presented to the ER with worsening pain and swelling of the right face. Patient admitted for moderate to severe dental abscess. #Sepsis secondary to right dental abscess s/p abscess drainage Continue with Unasyn 3 g IVPB every 6 hours Continue with IV normal saline 30 cc/h Acetaminophen 650 mg p.o. every 6 hours as needed, Dilaudid 0.5 mg IV every 3 hours as needed and Toradol 30 mg IVP every 6 hours as needed for pain pharmacological prophylaxis VTE is not indicated based on Kristel score Monitor CBC Monitor vital signs ID note reviewed, 2 weeks course of IV Rocephin 2 g daily and oral Flagyl on discharge #Hypercalcemia, resolved #Vitamin D deficiency #Elevated PTH, likely reactive Continue with IV fluids as above Continue monitor calcium level Low 25-hydroxy vitamin D level 9.9; recommend vitamin D supplement and outpatient follow-up with PCP Elevated PTH 76, likely reactive Repeat PTH and calcium tomorrow #Hyponatremia, resolved Sodium 137 #Metabolic alkalosis, resolved Bicarb 24.3 F: IV normal saline 30 cc/h E: Replete as needed N: Regular diet A: ambulatory DVT ppx: Not indicated, encourage ambulation Code Status: Full Anticipated discharge place: Pending clinical course Anticipated discharge date: Pending clinical course Objective - Vital Signs Vital signs: Vital Signs Temp 98.1 F 07/01/24 07:08 Pulse 61 07/01/24 10:16 Resp 17 07/01/24 10:16 BP 105/63 07/01/24 07:08 Pulse Ox 96 07/01/24 07:08 FiO2 Intake & Output 06/30/24 07/01/24 07/01/24 18:59 06:59 18:59 Intake Total 240 300 Balance 240 300 Intake: Oral 240 300 Other: Voiding Method Toilet Toilet Toilet # Voids 6 3 3 # Bowel Movements 0 0 - Labs CBC & Chem 7: 06/30/24 03:19 06/29/24 05:49 Labs: Microbiology - Last 24 Hours (Table) 06/29/24 16:35 Gram Stain - Preliminary Mouth Wound Culture - Preliminary 06/29/24 16:30 Gram Stain - Preliminary Mouth Wound Culture - Preliminary
--- NOTE | 2024-07-01 16:29 | P.PN ---
Progress Note - Text Patient 2 day status post incision and drainage of the right maxillary space adjacent to the psychometric buttress. Patient sitting up in bed watching TV appears comfortable states his pain is controlled. Patient reports some taste of discharge throughout the day. Patient feels the swelling is gone down. Patient feels less pain Objectively the patient swelling appears diminished from yesterday. Redness under the eye is less. [place] drain still present. Bloody discharge noted around the drain Assessment postoperatively the patient has improved slightly. Drain continues to output Continue heat to the face continue IV antibiotics await cultures. No growth after 24 hours on cultures
--- NOTE | 2024-07-02 14:52 | P.PN ---
Subjective Progress Note Date: 07/02/24 Principal diagnosis: Reason for follow-up is dental infection/abscess Patient is a 49-year-old male with a past medical history significant for smoking patient recently did have extraction of the right upper jaw teeth because of infection about 2 weeks ago and subsequently has been dealing with infection to that area some improvement with the Augmentin but show course was short did have worsening on the clindamycin admitted to hospital with worsening CT of the face which shows bony erosion near the expected location and there was small fluid collection patient also have a repeat CT right posterior maxillary molar is absent mandible is intact. Patient is status post right cheek abscess drainage by oral surgery on 06/29/2024. On today's evaluation that is 07/02/2024, Patient is afebrile patient is currently on room air and denies having any shortness of breath, the patient denies any chest pain or cough, the patient denies any nausea vomiting did not have any abdominal pain and no diarrhea patient pain to the right cheek and jaw has decreased in intensity. Patient did not have any CBC done today culture have been negative so far Objective - Vital Signs Vital signs: Vital Signs Temp 98.1 F 07/02/24 09:05 Pulse 62 07/02/24 09:05 Resp 17 07/02/24 09:05 BP 131/77 07/02/24 09:05 Pulse Ox 97 07/02/24 09:05 FiO2 Intake & Output 07/01/24 07/02/24 07/02/24 18:59 06:59 18:59 Intake Total 550 240 Balance 550 240 Intake: Oral 550 240 Other: Voiding Method Toilet Toilet Toilet # Voids 3 2 # Bowel Movements 0 - Exam GENERAL DESCRIPTION: Middle-age male lying in bed in no distress HEENT: Did have right maxillary swelling no redness RESPIRATORY SYSTEM: Unlabored breathing , decreased breath sounds at bases HEART: S1 S2 regular rate and rhythm , ABDOMEN: Soft , no tenderness EXTREMITIES: No edema feet - Labs CBC & Chem 7: 06/30/24 03:19 06/29/24 05:49 Labs: Microbiology - Last 24 Hours (Table) 06/29/24 16:35 Anaerobic Culture - Preliminary Mouth 06/29/24 16:30 Anaerobic Culture - Preliminary Mouth 06/29/24 16:35 Gram Stain - Final Mouth Wound Culture - Final 06/29/24 16:30 Gram Stain - Final Mouth Wound Culture - Final Assessment and Plan (1) Dental abscess Current Visit: Yes Status: Acute Code(s): K04.7 - PERIAPICAL ABSCESS WITHOUT SINUS SNOMED Code(s): 495963609 (2) Failure of outpatient treatment Current Visit: Yes Status: Acute Code(s): Z78.9 - OTHER SPECIFIED HEALTH STATUS SNOMED Code(s): 474080869 (3) Leukocytosis Current Visit: Yes Status: Acute Code(s): D72.829 - ELEVATED WHITE BLOOD CELL COUNT, UNSPECIFIED SNOMED Code(s): 987135399 (4) Allergy to vancomycin Current Visit: Yes Status: Acute Code(s): Z88.1 - ALLERGY STATUS TO OTHER ANTIBIOTIC AGENTS SNOMED Code(s): 602895923 Plan: 1patient presented to the hospital with increasing pain and swelling to the right upper jaw in this patient who recently did have a right upper molar tooth extraction about 2 weeks ago with initial improvement on the oral Augmentin sub sequent recurrence of this symptom and now worsening on clindamycin and did have a small abscess on the initial CT we will need to cover for the polymicrobial norma associated with such infection 2patient is status post surgical drainage of that abscess and fluid should be sent for the culture by oral surgery results are currently pending 3patient to continue with Unasyn, currently waiting for PICC line placement plan is for 2-week course of Rocephin and oral Flagyl on discharge discussed with admitting physician Dictation was produced using [employer] dictation software. please excuse any gramm atical, word or spelling errors. Time with Patient: Less than 30
--- NOTE | 2024-07-02 15:57 | P.PN ---
Subjective Progress Note Date: 07/02/24 Subjective: Patient seen and examined at the bedside. No acute events overnight. Patient states that he is feeling better with pain and swelling resolving after abscess drainage. All Systems reviewed and pertinent positives and negatives noted in HPI, all other symptoms are negative Objective: Vital signs reviewed. General: non toxic, no distress, appears at stated age, normal weight Derm: no unusual rashes/lesions, warm HEENT: Mild right facial swelling. Mild tenderness upon palpation of the right cheek and area around angle of mandible Cardiovascular: S1S2 reg, no murmur, positive dorsalis pedis pulse bilateral, no edema Lungs: CTA bilateral, no rhonchi, no rales, no accessory muscle use Abdominal: soft, nontender to palpation, no guarding Ext: muscle strength 5 out of 5 in all 4 extremities grossly, no gross muscle atrophy, no contractures, Neuro: CN II-XI grossly intact, no gross focal neuro deficits Psych: Alert, oriented, appropriate affect Data reviewed today: Labs: Calcium 10.2, PTH intact 59.5 Images: No new imaging. Assessment and Plan: 49-year-old male with no past medical history presented to the ER with worsening pain and swelling of the right face. Patient admitted for moderate to severe dental abscess. #Sepsis secondary to right dental abscess s/p abscess drainage Continue with Unasyn 3 g IVPB every 6 hours Acetaminophen 650 mg p.o. every 6 hours as needed, Dilaudid 0.5 mg IV every 3 hours as needed and Toradol 30 mg IVP every 6 hours as needed for pain pharmacological prophylaxis VTE is not indicated based on Kristel score Monitor vital signs ID note reviewed, 2 weeks course of IV Rocephin 2 g daily and oral Flagyl on discharge Repeat CBC in the morning #Hypercalcemia, resolved #Vitamin D deficiency #Elevated PTH, likely reactive Continue monitor calcium level Low 25-hydroxy vitamin D level 9.9; recommend vitamin D supplement and outpatient follow-up with PCP Repeat calcium level 10.2 and PTH intact 59.5, outpatient follow-up with general surgery #Hyponatremia, resolved Sodium 137 #Metabolic alkalosis, resolved Bicarb 24.3 F: P.o. E: Replete as needed N: Regular diet A: ambulatory DVT ppx: Not indicated, encourage ambulation Code Status: Full Anticipated discharge place: Pending clinical course Anticipated discharge date: Pending clinical course I saw and evaluated the patient during the [place]han and critical portions of this encounter, and discussed the case in detail with the resident author of this note, I agree with the Assessment and Plan, and my changes, if any, are highlighted in blue. Objective - Vital Signs Vital signs: Vital Signs Temp 98.1 F 07/02/24 09:05 Pulse 62 07/02/24 09:05 Resp 17 07/02/24 09:05 BP 131/77 07/02/24 09:05 Pulse Ox 97 07/02/24 09:05 FiO2 Intake & Output 07/01/24 07/02/24 07/02/24 18:59 06:59 18:59 Intake Total 550 240 Balance 550 240 Intake: Oral 550 240 Other: Voiding Method Toilet Toilet Toilet # Voids 3 2 # Bowel Movements 0 - Labs CBC & Chem 7: 06/30/24 03:19 06/29/24 05:49 Labs: Microbiology - Last 24 Hours (Table) 06/29/24 16:35 Anaerobic Culture - Preliminary Mouth 06/29/24 16:30 Anaerobic Culture - Preliminary Mouth 06/29/24 16:35 Gram Stain - Final Mouth Wound Culture - Final 06/29/24 16:30 Gram Stain - Final Mouth Wound Culture - Final
--- NOTE | 2024-07-03 12:19 | P.PN ---
Subjective Progress Note Date: 07/03/24 Subjective: Patient seen and examined at the bedside. No acute events overnight. Patient states that he is feeling better with pain and swelling resolving after abscess drainage. Pending PICC line and IV abx to be arranged thursday. Objective: Vital signs reviewed. General: non toxic, no distress, appears at stated age, normal weight Derm: no unusual rashes/lesions, warm HEENT: Mild right facial swelling. Mild tenderness upon palpation of the right cheek and area around angle of mandible Cardiovascular: S1S2 reg, no murmur, positive dorsalis pedis pulse bilateral, no edema Lungs: CTA bilateral, no rhonchi, no rales, no accessory muscle use Abdominal: soft, nontender to palpation, no guarding Ext: muscle strength 5 out of 5 in all 4 extremities grossly, no gross muscle atrophy, no contractures, Neuro: CN II-XI grossly intact, no gross focal neuro deficits Psych: Alert, oriented, appropriate affect Data reviewed today: Labs: Calcium 10.2, PTH intact 59.5 Images: No new imaging. Assessment and Plan: 49-year-old male with no past medical history presented to the ER with worsening pain and swelling of the right face. Patient admitted for moderate to severe dental abscess. #Sepsis secondary to right dental abscess s/p abscess drainage Continue with Unasyn 3 g IVPB every 6 hours Acetaminophen 650 mg p.o. every 6 hours as needed, Dilaudid 0.5 mg IV every 3 hours as needed and Toradol 30 mg IVP every 6 hours as needed for pain pharmacological prophylaxis VTE is not indicated based on Kristel score Monitor vital signs ID note reviewed, 2 weeks course of IV Rocephin 2 g daily and oral Flagyl on discharge Repeat CBC in the morning #Hypercalcemia, resolved #Vitamin D deficiency #Elevated PTH, likely reactive Continue monitor calcium level Low 25-hydroxy vitamin D level 9.9; recommend vitamin D supplement and outpatien t follow-up with PCP Repeat calcium level 10.2 and PTH intact 59.5, outpatient follow-up with general surgery #Hyponatremia, resolved Sodium 137 #Metabolic alkalosis, resolved Bicarb 24.3 F: P.o. E: Replete as needed N: Regular diet A: ambulatory DVT ppx: Not indicated, encourage ambulation Code Status: Full Anticipated discharge place: Pending clinical course Anticipated discharge date: Pending clinical course Objective - Vital Signs Vital signs: Vital Signs Temp 97.7 F 07/03/24 08:46 Pulse 68 07/03/24 08:46 Resp 17 07/03/24 08:46 BP 113/69 07/03/24 08:46 Pulse Ox 97 07/03/24 08:46 FiO2 Intake & Output 07/02/24 07/03/24 07/03/24 19:59 06:59 18:59 Intake Total Balance Intake: Oral Other: Voiding Method Toilet # Voids - Labs CBC & Chem 7: 06/30/24 03:19 06/29/24 05:49 Labs: Microbiology - Last 24 Hours (Table) 06/29/24 16:30 Anaerobic Culture - Final Mouth
--- NOTE | 2024-07-03 14:57 | P.PN ---
Subjective Progress Note Date: 07/03/24 Principal diagnosis: Post incision and drainage of right cheek abscess Patient had incision and drainage with 2 sets of culture tubes sampled on June 28. The drain continued to output pus until today the patient progressively got better in pain and swelling. Objective - Vital Signs Vital signs: Vital Signs Temp 97.7 F 07/03/24 08:46 Pulse 68 07/03/24 08:46 Resp 17 07/03/24 08:46 BP 113/69 07/03/24 08:46 Pulse Ox 97 07/03/24 08:46 FiO2 Intake & Output 07/02/24 07/03/24 07/03/24 19:59 06:59 18:59 Intake Total Balance Intake: Oral Other: Voiding Method Toilet # Voids - Exam Minimal swelling of right cheekbone patient's mouth opening is still not at 100% but twice is wide as his presentation upon admission. Maximum incisal opening approximately 30 mm with some deviation to the right. Patient's drain is stable but no longer outputting any discharge. No fluctuance palpated on the cheekbone or in the pterygomaxillary space with my finger. - Labs CBC & Chem 7: 06/30/24 03:19 06/29/24 05:49 Labs: Cultures reviewed with no growth on the anaerobic and a aerobic cultures. 1 aerobic culture had normal norma possibly due to scant bacteria still living in the abscess region. microbiology - Last 24 Hours (Table) 06/29/24 16:30 Anaerobic Culture - Final Mouth Assessment and Plan Assessment: Right cheek abscess much improved with current hospital therapy and incision and drainage over the past few days. Plan: Continue current therapy Await PICC line on Thursday order to continue IV antibiotics DC drain due to lack of output Continue heat and mouth opening exercises If discharged Thursday please make appointment for patient to be seen in my office on Thursday Time with Patient: Greater than 30
--- NOTE | 2024-07-03 14:57 | P.PN ---
Subjective Progress Note Date: 07/03/24 Principal diagnosis: Reason for follow-up is dental infection/abscess Patient is a 49-year-old male with a past medical history significant for smoking patient recently did have extraction of the right upper jaw teeth because of infection about 2 weeks ago and subsequently has been dealing with infection to that area some improvement with the Augmentin but show course was short did have worsening on the clindamycin admitted to hospital with worsening CT of the face which shows bony erosion near the expected location and there was small fluid collection patient also have a repeat CT right posterior maxillary molar is absent mandible is intact. Patient is status post right cheek abscess drainage by oral surgery on 06/29/2024. On today's evaluation that is 07/03/2024, patient has been afebrile, patient is breathing comfortably and is currently on room air, patient denies having any significant cough no chest pain, patient denies nausea vomiting or diarrhea and no abdominal pain patient pain to the right maxillary jaw area has decreased in intensity. No new lab has been obtained today cultures have been negative so far Objective - Vital Signs Vital signs: Vital Signs Temp 97.7 F 07/03/24 08:46 Pulse 68 07/03/24 08:46 Resp 17 07/03/24 08:46 BP 113/69 07/03/24 08:46 Pulse Ox 97 07/03/24 08:46 FiO2 Intake & Output 07/02/24 07/03/24 07/03/24 19:59 06:59 18:59 Intake Total Balance Intake: Oral Other: Voiding Method Toilet # Voids - Exam GENERAL DESCRIPTION: Middle-age male lying in bed in no distress HEENT: Did have right maxillary swelling no redness RESPIRATORY SYSTEM: Unlabored breathing , decreased breath sounds at bases HEART: S1 S2 regular rate and rhythm , ABDOMEN: Soft , no tenderness EXTREMITIES: No edema feet - Labs CBC & Chem 7: 06/30/24 03:19 06/29/24 05:49 Labs: Microbiology - Last 24 Hours (Table) 06/29/24 16:30 Anaerobic Culture - Final Mouth Assessment and Plan (1) Dental abscess Current Visit: Yes Status: Acute Code(s): K04.7 - PERIAPICAL ABSCESS WITHOUT SINUS SNOMED Code(s): 516552375 (2) Failure of outpatient treatment Current Visit: Yes Status: Acute Code(s): Z78.9 - OTHER SPECIFIED HEALTH STATUS SNOMED Code(s): 128969047 (3) Leukocytosis Current Visit: Yes Status: Acute Code(s): D72.829 - ELEVATED WHITE BLOOD CELL COUNT, UNSPECIFIED SNOMED Code(s): 679735879 (4) Allergy to vancomycin Current Visit: Yes Status: Acute Code(s): Z88.1 - ALLERGY STATUS TO OTHER ANTIBIOTIC AGENTS SNOMED Code(s): 586842271 Plan: 1patient presented to the hospital with increasing pain and swelling to the right upper jaw in this patient who recently did have a right upper molar tooth extraction about 2 weeks ago with initial improvement on the oral Augmentin subsequent recurrence of this symptom and now worsening on clindamycin and did have a small abscess on the initial CT we will need to cover for the polymicrobial norma associated with such infection 2patient is status post surgical drainage of that abscess and fluid should be sent for the culture by oral surgery results are so far negative 3patient to continue with Unasyn, plan is to get a midline or PICC line tomorrow and 2-week course of Rocephin and Flagyl on discharge Dictation was produced using [employer] dictation software. please excuse any grammatical, word or spelling errors. Time with Patient: Less than 30
[2024-07-04 03:00] VITALS: TEMP 97.9
[2024-07-04 07:54] VITALS: BP 109/71; PULSE 62; RESP 16
--- NOTE | 2024-07-04 12:08 | P.PN ---
Subjective Progress Note Date: 07/04/24 Principal diagnosis: Reason for follow-up is dental infection/abscess Patient is a 49-year-old male with a past medical history significant for smoking patient recently did have extraction of the right upper jaw teeth because of infection about 2 weeks ago and subsequently has been dealing with infection to that area some improvement with the Augmentin but show course was short did have worsening on the clindamycin admitted to hospital with worsening CT of the face which shows bony erosion near the expected location and there was small fluid collection patient also have a repeat CT right posterior maxillary molar is absent mandible is intact. Patient is status post right cheek abscess drainage by oral surgery on 06/29/2024. On today's evaluation that is 07/04/2024, Patient is afebrile this morning patient denies having any chest pain shortness of breath or cough, the patient is currently on room air, patient denies any abdominal pain no diarrhea no nausea no vomiting patient pain to the right upper jaw and facial area has decreased in intensity. No new lab has been repeated today Objective - Vital Signs Vital signs: Vital Signs Temp 97.9 F 07/04/24 07:23 Pulse 62 07/04/24 07:23 Resp 16 07/04/24 07:23 BP 109/71 07/04/24 07:23 Pulse Ox 95 07/04/24 07:23 FiO2 Intake & Output 07/03/24 07/04/24 07/04/24 18:59 06:59 18:59 Intake Total 850 2160 Balance 850 2160 Intake: Intake, IV Titration 200 Amount Ampicillin-Sulbactam 3 gm 200 In Sodium Chloride 0.9% 100 ml @ 200 mls/hr IVPB Q6HR [facility] Rx#:[id number] Oral 650 2160 Other: Voiding Method Toilet Toilet Toilet # Voids 4 3 - Exam GENERAL DESCRIPTION: Middle-age male lying in bed in no distress HEENT: Did have right maxillary swelling no redness RESPIRATORY SYSTEM: Unlabored breathing , decreased breath sounds at bases HEART: S1 S2 regular rate and rhythm , ABDOMEN: Soft , no tenderness EXTREMITIES: No edema feet - Labs CBC & Chem 7: 06/30/24 03:19 06/29/24 05:49 Labs: Microbiology - Last 24 Hours (Table) 06/29/24 16:35 Anaerobic Culture - Final Mouth Assessment and Plan (1) Dental abscess Current Visit: Yes Status: Acute Code(s): K04.7 - PERIAPICAL ABSCESS WITHOUT SINUS SNOMED Code(s): 565747643 (2) Failure of outpatient treatment Current Visit: Yes Status: Acute Code(s): Z78.9 - OTHER SPECIFIED HEALTH STATUS SNOMED Code(s): 176364683 (3) Leukocytosis Current Visit: Yes Status: Acute Code(s): D72.829 - ELEVATED WHITE BLOOD CELL COUNT, UNSPECIFIED SNOMED Code(s): 774576292 (4) Allergy to vancomycin Current Visit: Yes Status: Acute Code(s): Z88.1 - ALLERGY STATUS TO OTHER ANTIBIOTIC AGENTS SNOMED Code(s): 069085418 Plan: 1patient presented to the hospital with increasing pain and swelling to the right upper jaw in this patient who recently did have a right upper molar tooth extraction about 2 weeks ago with initial improvement on the oral Augmentin subsequent recurrence of this symptom and now worsening on clindamycin and did have a small abscess on the initial CT we will need to cover for the polymicrobial norma associated with such infection 2patient is status post surgical drainage of that abscess and fluid should be sent for the culture by oral surgery results are so far negative 3patient did get a PICC line this morning we will discontinue nursing start the patient on Rocephin 2 g daily prescription for outpatient antibiotic has been sent to the infusion company and for oral Flagyl to his local pharmacy Dictation was produced using [employer] dictation software. please excuse any grammatical, word or spelling errors. Time with Patient: Less than 30
--- NOTE | 2024-07-04 13:24 | P.DS ---
Providers Date of admission: 06/28/24 15:00 Attending physician: Nohelia Pena MD Consults: 06/27/24 11:52 Consult Physician Urgent Consulting Provider: Moses العلي Consult Reason/Comments: periodontal abcess Do you want consulting provider notified?: Yes 06/28/24 09:50 Consult Physician Urgent Consulting Provider: Jeremy Boudreaux Consult Reason/Comments: severe dental abscess Do you want consulting provider notified?: Yes 06/28/24 14:57 Consult Physician Routine Consulting Provider: Kimberly Carmen Consult Reason/Comments: dental abscess Do you want consulting provider notified?: Already Contacted Primary care physician: Stated None Hospital Course: Discharge Diagnosis: #Sepsis secondary to right dental abscess s/p abscess drainage #Hypercalcemia, resolved #Vitamin D deficiency #Elevated PTH, likely reactive #Hyponatremia, resolved #Metabolic alkalosis, resolved Hospital Course: 49-year-old male with no medical history presents to the ER with the pain and swelling of his right cheek and face. Patient was admitted to the hospital for further management of dental abscess. Lab values at the time of admission were significant for white blood cell count of 13.2, temperature 100 F, heart rate 94. Patient was admitted for sepsis secondary to dental abscess. CT of the face showed right upper first molar erosion with right maxillary sinus disease along with a severe edema and subcutaneous fat stranding possible abscess 11 x 6 mm. Infectious disease was consulted. Patient was started on IV Unasyn. OMFS and DDS were consulted. I&D with placement of a drain was performed. Drain was sent for culture and sensitivity. Patient continues to improve in his symptoms. Pain and swelling markedly improved and hemodynamically stable for discharge. Patient had a PICC line and was discharged on IV ceftriaxone 2 g and oral Flagyl. improvement in Patient to follow-up with PCP, infectious disease, dental surgeon. Patient otherwise to continue his home medications as directed. Patient is provided with instructions on dental abscess and PICC line. Vital signs reviewed. Gen: in no apparent distress, resting comfortably in bed Eyes: PERRL, no scleral injection or icterus HENT: normocephalic, atraumatic, good hearing acuity, moist mucous membranes Neck: full range of motion Resp: CTAB, no rales, rhonchi, or wheezes CVS: normal S1 and S2, no murmurs, rubs or gallops, no edema GI: soft, NTTP, ND, no hepatosplenomegaly : no suprapubic tenderness, no CVAT, lawler catheter is not present MSK: no clubbing, no cyanosis, no noted contractures of extremities Skin: no noted rashes, petechiae; temperature of skin is appropriate Neuro: moving all extremities without signs of weakness, CN II-XII intact Psych: cooperative, euthymic mood, insight and judgment intact I saw and evaluated the patient during the khan and critical portions of this encounter, and discussed the case in detail with the resident author of this note, I agree with the Assessment and Plan, and my changes, if any, are highlighted in blue. Plan - Discharge Summary Discharge Rx Participant: Yes New Discharge Prescriptions: New metroNIDAZOLE [Flagyl] 500 mg PO TID #42 tab Discontinued Clindamycin [Cleocin] 450 mg PO TID 7 Days #63 cap predniSONE [Deltasone] 20 mg PO DAILY 5 Days #5 tab Discharge Medication List metroNIDAZOLE [Flagyl] 500 mg PO TID #42 tab 07/04/24 [Rx] Follow up Appointment(s)/Referral(s): [facility], [NON-STAFF] - As Needed Moses العلي DDS [STAFF PHYSICIAN] - 07/05/24 8:00 am () [facility]Infusion [NON-STAFF] - As Needed [facility] [NON-STAFF] - 1 Week Jeremy Boudreaux MD [STAFF PHYSICIAN] - 07/11/24 2:30 pm Patient Instructions/Handouts: Dental Abscess (ED), PICC (Peripherally Inserted Central Catheter) (DC) Activity/Diet/Wound Care/Special Instructions: Please follow-up with your PCP, infectious disease and dental surgeon. Please complete the course of IV antibiotic ceftriaxone 2 g through PICC line and Flagyl 500 mg oral tablets 3 times daily. If you do not have a PCP, you can contact Dr. Dwyer office at [facility]. Please find the address below: [facility] [address] [place] [address], Discharge Disposition: HOME SELF-CARE
== END 2024-07-04 14:26 | disposition home or self-care (01) | DRG 872 ==
LOC: EC 13:37 → 6NMEDSUR 21:15 → 1SOBS 06-27 07:05 → OBSVTOIN 06-28 15:00 → 4SSUR 06-28 21:34
PROVIDERS: ADMIT Internal Medicine; ATTEND Internal Medicine
PROC: 0J9100Z Drainage of Face Subcutaneous Tissue and Fascia with Drainage Device, Open Approach (ICD-10-PCS; principal; 2024-06-29 07:30)
PROC: 02HV33Z Insertion of Infusion Device into Superior Vena Cava, Percutaneous Approach (ICD-10-PCS; 2024-07-04)
PROC: 4A02X4A Measurement of Cardiac Electrical Activity, Guidance, External Approach (ICD-10-PCS; 2024-07-04)
DX: A41.9 Sepsis, unspecified organism (principal); E87.1 Hypo-osmolality and hyponatremia; E87.3 Alkalosis; K04.7 Periapical abscess without sinus; E55.9 Vitamin D deficiency, unspecified; E83.52 Hypercalcemia; J32.0 Chronic maxillary sinusitis; F17.210 Nicotine dependence, cigarettes, uncomplicated; Z86.14 Personal history of Methicillin resistant Staphylococcus aureus infection; Z88.1 Allergy status to other antibiotic agents; Z79.899 Other long term (current) drug therapy
CPT/HCPCS: 36415; 36573; 70486; 70487; 80048; 80053; 82306; 82310; 82652; 83970; 84145; 85025; 87070; 87075; 87205; 96361; 96365; 96367; 96375; 96376; 99285